=== PATIENT | male | born 1960 | race Caucasian/White ===

== ENCOUNTER 2017-01-19 19:00 | Emergency (ER) | payer SELFPAY ==
[~2017-01-19] VITALS: Ht 170.2 cm; Wt 75.0 kg
[2017-01-19 19:08] VITALS: BP 132/89; PULSE 105; RESP 18; TEMP 98.7; O2SAT 98
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
[2017-01-19 22:10] VITALS: BP 143/90; PULSE 73; RESP 15; O2SAT 95
[2017-01-19] MEDS ORDERED: HALOPERIDOL LACTATE 5 MG/ML AMP IM ONE (22:15)
[2017-01-19] MEDS ORDERED: diphenhydrAMINE HCL 50 MG/ML VIAL IM ONE (22:15)
[2017-01-19] MEDS ORDERED: LORazepam 2 MG/ML VIAL ONE (22:48)
[2017-01-19] MEDS ORDERED: LORazepam 2 MG/ML VIAL IM ONE (23:00)
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
[2017-01-20 07:00] VITALS: BP 122/78; PULSE 87; RESP 16; TEMP 98; O2SAT 98
[2017-01-20 10:46] VITALS: BP 132/74
== END 2017-01-20 11:10 | disposition home or self-care (01) ==
LOC: NEDAMB 19:00 → NEPD 01-20 11:10
DX: S09.90XA Unspecified injury of head, initial encounter (principal); S81.812A Laceration without foreign body, left lower leg, initial encounter; S80.212A Abrasion, left knee, initial encounter; S80.211A Abrasion, right knee, initial encounter; X58.XXXA Exposure to other specified factors, initial encounter; Y93.55 Activity, bike riding; F10.920 Alcohol use, unspecified with intoxication, uncomplicated; F17.290 Nicotine dependence, other tobacco product, uncomplicated
CPT/HCPCS: 70450; 72125; 73560; 73600; 96372; 99285; J1200; J1630; J2060

== ENCOUNTER 2017-10-16 14:44 | Inpatient (IN) | payer SELFPAY ==
[2017-10-16] VITALS (7 sets, daily range): BP systolic 100–121; BP diastolic 61–74; PULSE 76–86; RESP 18–23; TEMP 97.5; O2SAT 92–100
[~2017-10-16] VITALS: Ht 175.3 cm; Wt 56.5 kg
[2017-10-16] MEDS ORDERED: PROPOFOL 200 MG/20 ML AMP ONE (14:57)
[2017-10-16] MEDS ORDERED: DIPHTH/TETANUS/ACEL PERTUSSIS (BOOSTER) 0.5 ML VIAL/PFS IM ONE ×2 (15:05→15:06)
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
[2017-10-16] MEDS ORDERED: CHLORHEXIDINE GLUCONATE 2 % 1 PACK (2 CLOTHS) TOP PRN (15:30)
[2017-10-16] MEDS ORDERED: ONDANSETRON HCL 4 MG/2 ML VIAL IV PUSH PRN (15:30)
[2017-10-16] MEDS ORDERED: ENALAPRILAT 1.25 MG/ML VIAL IV PUSH PRN (15:30)
[2017-10-16] MEDS ORDERED: NURSING INFORMATION XX SCH (15:30)
[2017-10-16] MEDS ORDERED: MAGNESIUM HYDROXIDE SUSP 30 ML CUP PO PRN (15:30)
[2017-10-16] MEDS ORDERED: IOHEXOL 350 MG/ML 10 ML VIAL (for RAD DIAG) IVCONTRAST ONE (15:30)
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
[2017-10-16] MEDS: LACTATED RINGER'S 1000 ML INJ 1,000 ML IV SCH (18:20)
[2017-10-16] MEDS: HYDROmorphone HCL PF 0.5 MG/0.5 ML SYRINGE IV PUSH PRN ×2 (19:53→23:03)
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
[2017-10-16] MEDS: DOCUSATE SODIUM 100 MG CAP PO SCH (20:05)
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
[2017-10-16] MEDS: BACITRACIN TOP OINT 15 GM TUBE TOP SCH (20:38)
[2017-10-16 22:25] LABS: AUTOMATED NEUTROPHIL # 9.9 TH/MM3 (1.8-7.7); BASOPHIL % 0.4 % (0.0-2.0); EOSINOPHIL % 0.1 % (0.0-4.0); HEMATOCRIT 39.3 % (39.0-51.0); HEMOGLOBIN 13.3 GM/DL (13.0-17.0); LYMPH % 14.2 % (9.0-44.0); LYMPHOCYTE # 1.8 TH/MM3 (1.0-4.8); MEAN CELL VOLUME 91.6 FL (80.0-100.0); MEAN CORPUSCULAR HEMOGLOBIN 31.1 PG (27.0-34.0); MEAN PLATELET VOLUME 8.4 FL (7.0-11.0); MONO % 6.7 % (0.0-8.0); MONOCYTE # 0.8 TH/MM3 (0-0.9); NEUT % 78.6 % (16.0-70.0); PLATELET COUNT 278 TH/MM3 (150-450); RED BLOOD COUNT 4.29 MIL/MM3 (4.50-5.90); RED CELL DISTRIBUTION WIDTH 13.5 % (11.6-17.2); WHITE BLOOD COUNT 12.6 TH/MM3 (4.0-11.0)
[2017-10-16 22:27] LABS: PROTHROMBIN TIME - PATIENT 10.1 SEC (9.8-11.6)
[2017-10-17] VITALS (14 sets, daily range): BP systolic 100–155; BP diastolic 59–90; PULSE 54–94; RESP 12–20; TEMP 98–98.8; O2SAT 93–100
[2017-10-17] MEDS: LACTATED RINGER'S 1000 ML INJ 1,000 ML IV SCH ×3 (00:11→19:20)
[2017-10-17] MEDS: CHLORHEXIDINE GLUCONATE 2 % 1 PACK (2 CLOTHS) TOP SCH (04:00)
[2017-10-17 05:15] LABS: AUTOMATED NEUTROPHIL # 7.1 TH/MM3 (1.8-7.7); BASOPHIL # 0.1 TH/MM3 (0-0.2); BASOPHIL % 0.6 % (0.0-2.0); EOSINOPHIL # 0.1 TH/MM3 (0-0.4); EOSINOPHIL % 0.6 % (0.0-4.0); HEMATOCRIT 40.2 % (39.0-51.0); HEMOGLOBIN 13.6 GM/DL (13.0-17.0); LYMPH % 13.9 % (9.0-44.0); LYMPHOCYTE # 1.3 TH/MM3 (1.0-4.8); MEAN CELL VOLUME 91.8 FL (80.0-100.0); MEAN CORPUSCULAR HGB CONC 33.8 % (32.0-36.0); MEAN PLATELET VOLUME 8.2 FL (7.0-11.0); MONO % 8.2 % (0.0-8.0); MONOCYTE # 0.8 TH/MM3 (0-0.9); NEUT % 76.7 % (16.0-70.0); PLATELET COUNT 272 TH/MM3 (150-450); RED BLOOD COUNT 4.38 MIL/MM3 (4.50-5.90); RED CELL DISTRIBUTION WIDTH 13.7 % (11.6-17.2); WHITE BLOOD COUNT 9.3 TH/MM3 (4.0-11.0)
[2017-10-17 05:35] LABS: BICARBONATE 22.2 MEQ/L (21.0-32.0); CREATININE 0.65 MG/DL (0.60-1.30)
[2017-10-17] MEDS: FAMOTIDINE 20 MG TAB PO SCH ×2 (08:21→21:00)
[2017-10-17] MEDS: BACITRACIN TOP OINT 15 GM TUBE TOP SCH ×2 (08:21→20:54)
[2017-10-17] MEDS: DOCUSATE SODIUM 100 MG CAP PO SCH ×2 (08:21→21:00)
[2017-10-17] MEDS ORDERED: MORPHINE SULFATE 8 MG/ML INJ ONE (09:31)
[2017-10-17] MEDS ORDERED: MIDAZOLAM HCL 5 MG/ML VIAL (1 ML) ONE (09:31)
[2017-10-17] MEDS ORDERED: LIDOCAINE 1%/EPINEPHrine 1:100,000 SOLN 30 ML VIAL ONE (09:40)
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
[2017-10-17] MEDS ORDERED: MIDAZOLAM HCL 5 MG/ML VIAL (1 ML) IV ONE (10:00)
[2017-10-17] MEDS ORDERED: MORPHINE SULFATE 4 MG/ML INJ IV PUSH ONE ×2 (10:00→11:00)
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
--- NOTE | 2017-10-17 10:37 | PD.OP ---
LAUREN Huff [id number] Operative Report Date of Surgery: October 17, 2017 Preoperative Diagnosis: Cervical C2 type II odontoid fracture, C3-4 listhesis with the ligamentous disruption and instability; left C5 pedicle/facet fracture Postoperative Diagnosis: Same Procedure: Closed reduction with manipulation of the cervical spine fractures; HALO placement Anesthesia: Local with conscious sedation Surgeon: Satnam Aguilar MD Director Of Curriculum(s): None Operation and Findings: Informed consent was obtained from the patient. Procedure undertaken at the bedside in the surgical intensive care unit with oxygen saturation and hemodynamic monitoring. Neck was maintained in a [place] J collar during the placement of the halo. After administration of intravenous Versed and morphine bifrontal and occipital regions were then shaved and prepped with Betadine solution and infiltrated with 1% lidocaine with epinephrine solution. The halo ring was in place with 2 frontal and occipital pins tightened to 8 pounds of torque pressure. With gentle traction the cervical spinal alignment was restored and lateral cervical spine x-rays obtained which confirmed restored cervical spinal alignment. The halo vest was then also placed in the ring connectors of the vest with rods and locked in place at 30 pounds of pressure at each connection maintaining a neutral neck position. Patient tolerated the procedure well without any complications or blood loss. Satnam Aguilar MD October 17, 2017 10:37
[2017-10-17] MEDS ORDERED: MIDAZOLAM HCL 5 MG/ML VIAL (1 ML) IV PUSH ONE (11:00)
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
--- NOTE | 2017-10-17 12:04 | EKG ---
Date Performed: 10/17/2017 Time Performed: 10:02:39 PTAGE: 56 years EKG: Sinus rhythm WITH MARKED SINUS ARRHYTHMIA WITH SHORT MO INTERVAL BORDERLINE ECG NO PREVIOUS TRACING DOCTOR: Marcio Soto Interpretating Date/Time 10/17/2017 12:02:46
--- NOTE | 2017-10-17 12:32 | RADRPT ---
EXAM DATE/TIME: 10/17/2017 10:53 [facility] COMPARISON: CT CERVICAL SPINE W/O CONTRAST, October 16, 2017, 15:10. INDICATIONS : Trauma. MEDICAL HISTORY : None. SURGICAL HISTORY : None. ENCOUNTER: Initial ACUITY: 1 day PAIN SCORE: Non-responsive. LOCATION: Cervical spine. FINDINGS: Single lateral view of the cervical spine with halo device in place demonstrates anterior spinal plat e and screws extending from C5-C7. There is a bone cage replacing the C6 vertebral body. Yesterday's CT examination documented a fracture through the base of the odontoid process. The fracture is not vi sualized on this examination. There is no anterolisthesis or retrolisthesis. Prevertebral soft tissue swelling is present. The previously documented retrolisthesis of C3 on C4 has resolved. The small fr acture fragment from the anterior inferior end plate of C3 remains displaced anteriorly by 4 mm. CONCLUSION: 1. Resolution of the abnormal retrolisthesis of C3 on C4. 2. The fracture through the odontoid process is not visualized on this examination. 3. Hardware at C4, C5, and C6 is stable. 4. Prevertebral soft tissue swelling is present. Refugio Olivares MD on October 17, 2017 at 12:27 Board Certified Radiologist. This report was verified electronically.
[2017-10-17] MEDS: VANCOMYCIN INJ 1,000 MG in SODIUM CHLOR 0.9% 250 ML INJ 250 ML IV SCH (14:12)
[2017-10-17] MEDS: SODIUM CHLORIDE 0.9% FLUSH 10 ML FLUSH IV FLUSH PRN (20:55)
[2017-10-17] MEDS: HYDROmorphone HCL PF 0.5 MG/0.5 ML SYRINGE IV PUSH PRN (20:55)
[2017-10-17] MEDS ORDERED: CHLORHEXIDINE GLUCONATE 2 % 1 PACK (2 CLOTHS) TOPICAL PRN (21:15)
[2017-10-17] MEDS ORDERED: LACTATED RINGER'S 1000 ML IV PRN (21:15)
[2017-10-17] MEDS ORDERED: METOPROLOL TARTRATE 25 MG TAB PO PRN (21:15)
[2017-10-17] MEDS ORDERED: POVIDONE IODINE 5% (ANTISEPSIS KIT) 4 APPLICATIONS EACH NARE PRN (21:15)
[2017-10-17] MEDS ORDERED: SODIUM CHLORID 0.9% 500 ML IV PRN (21:15)
[2017-10-18] VITALS (14 sets, daily range): BP systolic 117–169; BP diastolic 60–96; PULSE 54–124; RESP 12–21; TEMP 98.2–98.6; O2SAT 98–100
[2017-10-18] MEDS: VANCOMYCIN INJ 1,000 MG in SODIUM CHLOR 0.9% 250 ML INJ 250 ML IV SCH ×2 (01:53→14:00)
[2017-10-18] MEDS: CHLORHEXIDINE GLUCONATE 2 % 1 PACK (2 CLOTHS) TOP SCH (04:00)
[2017-10-18 04:26] LABS: AUTOMATED NEUTROPHIL # 6.3 TH/MM3 (1.8-7.7); BASOPHIL # 0.1 TH/MM3 (0-0.2); BASOPHIL % 0.7 % (0.0-2.0); EOSINOPHIL % 0.5 % (0.0-4.0); HEMATOCRIT 37.2 % (39.0-51.0); HEMOGLOBIN 12.9 GM/DL (13.0-17.0); LYMPH % 11.7 % (9.0-44.0); LYMPHOCYTE # 0.9 TH/MM3 (1.0-4.8); MEAN CELL VOLUME 91.5 FL (80.0-100.0); MEAN CORPUSCULAR HEMOGLOBIN 31.7 PG (27.0-34.0); MEAN CORPUSCULAR HGB CONC 34.7 % (32.0-36.0); MEAN PLATELET VOLUME 8.6 FL (7.0-11.0); MONO % 8.7 % (0.0-8.0); MONOCYTE # 0.7 TH/MM3 (0-0.9); NEUT % 78.4 % (16.0-70.0); PLATELET COUNT 220 TH/MM3 (150-450); RED BLOOD COUNT 4.06 MIL/MM3 (4.50-5.90); RED CELL DISTRIBUTION WIDTH 13.2 % (11.6-17.2); WHITE BLOOD COUNT 8.1 TH/MM3 (4.0-11.0)
[2017-10-18] MEDS: LACTATED RINGER'S 1000 ML INJ 1,000 ML IV SCH ×2 (04:39→17:44)
[2017-10-18] MEDS: HYDROmorphone HCL PF 0.5 MG/0.5 ML SYRINGE IV PUSH PRN ×2 (04:40→14:12)
[2017-10-18] MEDS: SODIUM CHLORIDE 0.9% FLUSH 10 ML FLUSH IV FLUSH PRN ×2 (04:40→21:04)
[2017-10-18 04:53] LABS: ALBUMIN 2.6 GM/DL (3.4-5.0); ALT (GPT) 36 U/L (12-78); AST (GOT) 37 U/L (15-37); BICARBONATE 27.4 MEQ/L (21.0-32.0); BLOOD UREA NITROGEN 7 MG/DL (7-18); CALCIUM 7.6 MG/DL (8.5-10.1); CHLORIDE 100 MEQ/L (98-107); CREATININE 0.54 MG/DL (0.60-1.30); GLOMERULAR FILTRATION RATE 158 ML/MIN (>89); GLUCOSE,RANDOM 87 MG/DL (74-106); SODIUM (NA) 137 MEQ/L (136-145)
[2017-10-18 04:55] LABS: ALKALINE PHOSPHATASE 47 U/L (45-117); TOTAL PROTEIN 6.1 GM/DL (6.4-8.2)
[2017-10-18] MEDS ORDERED: ACETAMINOPHEN 1000 MG/100 ML 0 ML IV ONE (07:22)
[2017-10-18] MEDS ORDERED: PROPOFOL 500 MG/50 ML INJ 100 ML ONE (07:22)
[2017-10-18] MEDS: FAMOTIDINE 20 MG TAB PO SCH ×2 (07:23→21:05)
[2017-10-18] MEDS: DOCUSATE SODIUM 100 MG CAP PO SCH ×2 (07:23→21:05)
[2017-10-18] MEDS: BACITRACIN TOP OINT 15 GM TUBE TOP SCH ×2 (07:26→21:04)
[2017-10-18] MEDS ORDERED: THROMBIN (TOPICAL) 5,000 UNIT VIAL ONE ×2 (07:30→07:46)
[2017-10-18] MEDS ORDERED: BUPIVACAINE/EPINEPHRINE 0.5% PF 30 ML VIAL ONE (07:30)
[2017-10-18] MEDS ORDERED: VANCOMYCIN HCL 1000 MG VIAL ONE ×2 (07:30→07:46)
[2017-10-18] MEDS ORDERED: GELFOAM SIZE 100 ONE ×2 (07:30→07:46)
[2017-10-18] MEDS ORDERED: KETAMINE HCL 500 MG/10 ML VIAL ONE (07:44)
[2017-10-18] MEDS ORDERED: PROPOFOL 500 MG/50 ML INJ 50 ML ONE (07:44)
[2017-10-18] MEDS ORDERED: ACETAMINOPHEN 1000 MG/100 ML 100 ML IV ONE (07:45)
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
[2017-10-18] MEDS ORDERED: ARTIFICIAL TEARS OPTH OINT 3.5 APPLIC/3.5 GM TUBO ONE (08:00)
[2017-10-18] MEDS ORDERED: LACTATED RINGER'S 1000 ML INJ 2,000 ML IV ONE (12:00)
[2017-10-18] MEDS ORDERED: PROPOFOL 200 MG/20 ML AMP IV ONE (12:00)
[2017-10-18] MEDS ORDERED: ROCURONIUM INJ 50 MG/5 ML SYRINGE IV PUSH ONE (12:00)
[2017-10-18] MEDS ORDERED: GLYCOPYRROLATE 1 MG/5 ML SYRINGE IV PUSH ONE (12:00)
[2017-10-18] MEDS ORDERED: ePHEDrine/NS 25 MG/5 ML SYRINGE IV ONE (12:00)
[2017-10-18] MEDS ORDERED: LIDOCAINE HCL 1% PF 5 ML SYRINGE OTHER ONE (12:00)
[2017-10-18] MEDS ORDERED: ONDANSETRON HCL 4 MG/2 ML VIAL IV PUSH ONE (12:00)
[2017-10-18] MEDS ORDERED: PHENYLEPH/NS 1000 MCG/10 ML SYR IV ONE (12:00)
--- NOTE | 2017-10-18 13:18 | PD.OP ---
LAUREN Huff [id number] Operative Report Date of Surgery: October 18, 2017 Preoperative Diagnosis: Cervical C2 type II odontoid fracture; C3-4 subluxation with widening of the facet and anterior and posterior ligamentous disruption with instability; left C5 pedicle/facet fracture Postoperative Diagnosis: Same Procedure: Posterior cervical C1, C2, C3, C4, C5, C6 and C7 autograft/allograft fusion; C1- 2 interspinous Devante cable stabilization with C3-7 lateral mass/facet fixation ; C3-4 decompressive laminotomy; left iliac crest autograft harvest; microsurgical technique Anesthesia: General endotracheal by Cinthya garvin Surgeon: Satnam Aguilar MD Conveyor Belt Operator(s): Celia Loya Operation and Findings: Following administration of general endotracheal anesthesia with the neck maintained in neutral position in a halo, patient had a Michael catheter placed with sequential compression devices in place. A gram of vancomycin was administered intravenously. He was then turned on a prone position on a Jose Miguel table and the halo head ring was secured to the [place] headrest and the posterior portion of the vas then removed after all pressure points adequately padded. Posterior cervical region was then shaved and prepped with Betadine solution and ChloraPrep. Sterile draping undertaken along with Ioban and a midline incision extending from the C1 to the C7 was then made after infiltrating the skin was 0.5% Marcaine with epinephrine solution. Intraoperative fluoroscopy used for level confirmation. Retractors were used for exposure after the fascia incised and the muscular attachments to the spinous process and lamina along with the facets detached from C3 to C7 levels bilaterally as well as exposure of the C1 posterior arch and C2 spinous process and lamina. Further dissection was undertaken using microtechnique with microscope magnification. I decorticated the inferior portion of the C1 posterior arch and the superior portion of the C2 lamina and spinous process and a Devante cable was then passed under the C1 lamina. An incision was then made overlying the left iliac crest after infiltrating the skin with 0.5% Marcaine with epinephrine solution and extending down through the fascia and the muscular attachments to crests were detached. Using an osteotome a tricortical autograft was harvested along with the cancellus bone using gouges. Gelfoam and thrombin was used for hemostasis in the then copiously irrigated. The fascia was then approximated using 2-0 Vicryl interrupted stitches and then the skin overlying the crest was approximately using 3-0 Vicryl subcuticular stitches and filemon. The tricortical autograft was then contoured to be position in between the C1 and C2 space and the Devante cable was then secured at the C1-C2 level under the spinous process of C2 using the Sonntag technique. The C1-C2 construct appeared to be very secure at this point. There was gross C3-4 instability noted with the widening of the facet and disruption of the facet capsule and interspinous ligaments The facets on both sides decorticated C2-C7 with a curette. Subsequently lateral mass fixation undertaken with the [employer] screws with entry point of the midportion of the facet on the right side from C3 to C7 levels in the left sides involving the C3-C4 and C6 levels. The screw trajectory was lateral and superiorly guided with fluoroscopy also. Screws were then connected with a chrissie and locked in place with caps. The construct appeared to be secure this point in AP and lateral fossae confirmed good placement and alignment. The inferior portion of the C3 and superior portion of C4 lamina was also resected with a drill bit and Kerrisons to decompress the spinal canal. The decorticated facets were then packed from C3 to C7 levels with autograft morselized bone along with demineralized bone matrix for posterolateral fusion. The area was then copiously irrigated with antibody solution laminectomy edges and hemostasis achieved with bone wax along with Gelfoam and thrombin. Retractors removed and the muscle and fascia using 2-0 Vicryl interrupted sutures and 3-0 Vicryl subcuticular stitch also placed in an interrupted fashion and final skin closure was with filemon. A sterile dressing was applied and the neck immobilized in a [place] J collar. He was then turned in supine position and taken back to the intensive care unit. There were no intraoperative complications and all sponge and needle count was correct at the end the procedure. Estimated blood loss about 100 cc. Patient did undergo intraoperative neurologic monitoring which remained stable throughout surgery. Satnam Aguilar MD October 18, 2017 13:18
[2017-10-18] MEDS: PROPOFOL 1000 MG/100 ML INJ 100 ML IV PRN ×3 (13:30→22:14)
--- NOTE | 2017-10-18 14:02 | RADRPT ---
EXAM DATE/TIME: 10/18/2017 09:28 [facility] COMPARISON: No previous studies available for comparison. INDICATIONS : Posterior cervical fusion, laminectomy, hardware placement. MEDICAL HISTORY : Anterior cervical corpectomy, fusion. SURGICAL HISTORY : Anterior cervical corpectomy, fusion. ENCOUNTER: Subsequent ACUITY: 2 days PAIN SCORE: Non-responsive. LOCATION: Posterior cervical fusion. FINDINGS: Patient is now fused anteriorly and posteriorly. Posterior fusion is from C2-C7. Anterior fusion wi th cages from C4-C6. CONCLUSION: Fusions as above.. Jett Shah MD FACR on October 18, 2017 at 13:59 Board Certified Radiologist. This report was verified electronically.
[2017-10-18] MEDS ORDERED: POTASSIUM PHOSPHATE INJ 30 MMOL in SODIUM CHLOR 0.9% 250 ML INJ 250 ML IV PRN (14:15)
[2017-10-18] MEDS ORDERED: POTASSIUM CHLOR 20 MEQ PREMIX 100 ML IV PRN (14:15)
[2017-10-18] MEDS ORDERED: POTASSIUM PHOSPHATE MONOBASIC 500 MG TAB PO PRN (14:15)
[2017-10-18] MEDS ORDERED: POTASSIUM CHLORIDE 25 MEQ EFFERVESCENT TAB PO PRN (14:15)
[2017-10-18] MEDS ORDERED: SODIUM PHOSPHATE INJ 30 MMOL in SODIUM CHLOR 0.9% 250 ML INJ 240 ML IV PRN (14:15)
[2017-10-18] MEDS ORDERED: MAGNESIUM OXIDE 400 MG TAB PO PRN (14:15)
[2017-10-18] MEDS ORDERED: MAGNESIUM SULFATE INJ 2 GM in SODIUM CHLORIDE 0.9% INJ 96 ML IV PRN (14:15)
[2017-10-18] MEDS ORDERED: RESP: ALBUTEROL 2.5 MG/IPRATROPIUM 0.5 MG NEB (PRN) NEB (14:15)
[2017-10-18] MEDS ORDERED: MAGNESIUM SULFATE INJ 4 GM in SODIUM CHLORIDE 0.9% INJ 92 ML IV PRN (14:15)
[2017-10-18] MEDS ORDERED: POTASSIUM CHLOR 40 MEQ PREMIX 100 ML IV PRN ×2 (14:15)
[2017-10-18] MEDS ORDERED: POTASSIUM PHOSPHATE MONOBASIC 500 MG TAB PO/TUBE PRN (14:15)
[2017-10-18] MEDS ORDERED: MIDAZOLAM HCL 2 MG/2 ML VIAL ONE (14:17)
[2017-10-18 14:26] LABS: HEMATOCRIT 30.1 % (39.0-51.0); HEMOGLOBIN 10.6 GM/DL (13.0-17.0); MEAN CELL VOLUME 91.5 FL (80.0-100.0); MEAN CORPUSCULAR HEMOGLOBIN 32.2 PG (27.0-34.0); MEAN CORPUSCULAR HGB CONC 35.2 % (32.0-36.0); MEAN PLATELET VOLUME 8.3 FL (7.0-11.0); PLATELET COUNT 184 TH/MM3 (150-450); RED BLOOD COUNT 3.29 MIL/MM3 (4.50-5.90); WHITE BLOOD COUNT 8.6 TH/MM3 (4.0-11.0)
[2017-10-18 15:18] LABS: BICARBONATE 27.8 MEQ/L (21.0-32.0); CREATININE 0.68 MG/DL (0.60-1.30); MAGNESIUM 1.7 MG/DL (1.5-2.5)
[2017-10-18 15:33] LABS: CALCIUM-PROTEIN CORRECTED 8.2 MG/DL (8.5-10.1); TOTAL PROTEIN 4.9 GM/DL (6.4-8.2)
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
[2017-10-18] MEDS: RESP: ALBUTEROL 2.5 MG/IPRATROPIUM 0.5 MG NEB (SCH) NEB ×2 (16:35→20:40)
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
[2017-10-18] MEDS: CHLORHEXIDINE 0.12% (ORAL KIT) 15 ML CUP MT SCH (21:07)
[2017-10-19] VITALS (18 sets, daily range): BP systolic 96–120; BP diastolic 47–56; PULSE 74–102; RESP 12–15; TEMP 97.9–99.9; O2SAT 94–100
[2017-10-19] MEDS: VANCOMYCIN INJ 1,000 MG in SODIUM CHLOR 0.9% 250 ML INJ 250 ML IV SCH (02:08)
[2017-10-19] MEDS: SODIUM CHLORIDE 0.9% FLUSH 10 ML FLUSH IV FLUSH PRN ×2 (02:08→20:16)
[2017-10-19] MEDS: CHLORHEXIDINE GLUCONATE 2 % 1 PACK (2 CLOTHS) TOP SCH (04:00)
[2017-10-19] MEDS: LACTATED RINGER'S 1000 ML INJ 1,000 ML IV SCH ×2 (04:00→13:23)
[2017-10-19] MEDS: RESP: ALBUTEROL 2.5 MG/IPRATROPIUM 0.5 MG NEB (SCH) NEB ×4 (04:22→20:56)
[2017-10-19 05:33] LABS: AUTOMATED NEUTROPHIL # 6.1 TH/MM3 (1.8-7.7); BASOPHIL # 0.1 TH/MM3 (0-0.2); BASOPHIL % 0.7 % (0.0-2.0); EOSINOPHIL % 0.5 % (0.0-4.0); HEMATOCRIT 28.2 % (39.0-51.0); HEMOGLOBIN 9.8 GM/DL (13.0-17.0); LYMPH % 11.3 % (9.0-44.0); LYMPHOCYTE # 0.8 TH/MM3 (1.0-4.8); MEAN CELL VOLUME 91.5 FL (80.0-100.0); MEAN CORPUSCULAR HEMOGLOBIN 31.8 PG (27.0-34.0); MEAN CORPUSCULAR HGB CONC 34.8 % (32.0-36.0); MONOCYTE # 0.3 TH/MM3 (0-0.9); NEUT % 83.5 % (16.0-70.0); PLATELET COUNT 170 TH/MM3 (150-450); RED BLOOD COUNT 3.08 MIL/MM3 (4.50-5.90); RED CELL DISTRIBUTION WIDTH 13.1 % (11.6-17.2); WHITE BLOOD COUNT 7.3 TH/MM3 (4.0-11.0)
[2017-10-19 05:52] LABS: ALBUMIN 2.2 GM/DL (3.4-5.0); BICARBONATE 29.6 MEQ/L (21.0-32.0); CALCIUM 7.1 MG/DL (8.5-10.1); CALCIUM-PROTEIN CORRECTED 8.2 MG/DL (8.5-10.1); CREATININE 0.43 MG/DL (0.60-1.30); TOTAL BILIRUBIN ADULT 0.8 MG/DL (0.2-1.0)
[2017-10-19] MEDS: PROPOFOL 1000 MG/100 ML INJ 100 ML IV PRN ×2 (06:38→18:30)
[2017-10-19] MEDS: POTASSIUM CHLOR 20 MEQ PREMIX 100 ML IV PRN (06:40)
[2017-10-19] MEDS: CHLORHEXIDINE 0.12% (ORAL KIT) 15 ML CUP MT SCH ×2 (08:00→20:16)
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
[2017-10-19] MEDS: DOCUSATE SODIUM 100 MG CAP PO SCH ×2 (09:00→20:16)
[2017-10-19] MEDS: FAMOTIDINE 20 MG TAB PO SCH ×2 (09:10→20:16)
[2017-10-19] MEDS: BACITRACIN TOP OINT 15 GM TUBE TOP SCH ×2 (09:10→20:18)
[2017-10-19] MEDS ORDERED: ENOXAPARIN SODIUM 30 MG/0.3 ML SYRINGE SQ SCH (10:00)
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
[2017-10-19] MEDS ORDERED: ePHEDrine/NS 25 MG/5 ML SYRINGE IV ONE (12:00)
[2017-10-19] MEDS ORDERED: PHENYLEPH/NS 1000 MCG/10 ML SYR IV ONE (12:00)
[2017-10-19] MEDS ORDERED: ROCURONIUM INJ 50 MG/5 ML SYRINGE IV PUSH ONE (12:00)
[2017-10-19] MEDS ORDERED: PHENYLEPHRINE HCL 10 MG/ML VIAL IV ONE (12:00)
[2017-10-19] MEDS ORDERED: LIDOCAINE HCL 1% PF 5 ML SYRINGE OTHER ONE (12:00)
[2017-10-19] MEDS ORDERED: PROPOFOL 200 MG/20 ML AMP IV ONE (12:00)
[2017-10-19] MEDS ORDERED: GENTAMICIN SULFATE 80 MG/2 ML VIAL ONE (13:10)
[2017-10-19] MEDS ORDERED: CLINDAMYCIN PHOS 900 MG/6 ML VIAL ONE (13:40)
[2017-10-19] MEDS ORDERED: Post-op Orders (for Pharmacy) XX ONE (14:45)
--- NOTE | 2017-10-19 14:46 | PD.OP ---
cc: Fox Mir MD Operative Report Date of Surgery: October 19, 2017 Preoperative Diagnosis: Displaced left distal tibial shaft fracture Postoperative Diagnosis: Procedure: Reduction and intramedullary chrissie fixation left tibia Anesthesia: General Surgeon: Fox Mir Protector Plate Attacher(s): Brando Barreto PA-C The surgical procedure was assisted by my physician assistant site manager. My P.A. presence was necessary throughout this case for the manipulation and positioning of the surgical extremity. My P.A. was assisting me throughout the duration of this procedure. The skill set of a physician assistant site manager was medically necessary to complete this procedure. During the surgical case the rad technologist was working at the back table and the physician assistant site manager was directly assisting me. Operation and Findings: Implants: ITS 10 mm x [345]mm tibial nail Plan of activity: Nonweightbearing Patient was seen and examined preoperatively. An informed consent was obtained from patient after detailed discussion of risk and benefits. Risks of surgery include bleeding, infection, painful hardware, nonunion, malunion, leg length discrepancy, need for hardware removal, and medical complications associated with anesthesia including blood clots, stroke, heart attack, and were discussed. Operative site was marked. Patient was brought to the operating room placed on or table. Patient received IV antibiotics and was given IV sedation GETA. Operative leg was prepped with alcohol Hibiclens and draped in usual sterile fashion. Timeout procedure was performed Procedure began with reduction of fracture. 2 small incisions were made around the fracture site. A percutaneous clamp was placed. Traction was applied. Fracture was reduced. There was comminution of the fracture. The fracture reduced and excellent alignment was achieved. Fracture clamp was used to aid in reduction. Next a 3 cm incision was made proximal to the patella. Quadriceps tendon was split in line with fibers. Cannulas were placed in the patellofemoral joint to protect the articular surface at all times. A guidepin was placed into the tibia and advanced in the tibial canal. Fluoroscopy was used to confirm appropriate guidepin placement. An opening reamer was used to open the tibial canal. A ball-tipped guidewire was advanced down the tibial canal. Guidepin was passed across the fracture site into the center of the distal tibia. Fluoroscopy confirmed guidepin placement. The nail length was now measured. The fracture was now held in a reduced position and the canal was reamed. The canal was reamed up to appropriate size. A tibia nail was now selected. Next the nail was fully seated. Using perfect [place] technique 3 distal interlocking screws were placed. Using the insertion handle as a guide 1 proximal interlocking screw was placed. Fluoroscopy confirmed excellent of fracture with well-placed hardware. Incisions and the knee joint were thoroughly irrigated with sterile saline. Fascia was closed with #1 Vicryl, subcutaneous tissues closed with 3-0 Vicryl and skin was closed with filemon. Sterile dressings were applied. Patient was awakened and transferred to recovery in stable condition. Fox Mir MD October 19, 2017 14:46
[2017-10-19] MEDS ORDERED: PROPOFOL 500 MG/50 ML INJ 50 ML ONE (14:55)
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
[2017-10-19] MEDS: PHENYLEPHRINE 40 MG in D5W 500 ML IV PRN ×2 (15:15→20:17)
[2017-10-19] MEDS ORDERED: MIDAZOLAM HCL 2 MG/2 ML VIAL ONE (15:25)
--- NOTE | 2017-10-19 15:52 | RADRPT ---
EXAM DATE/TIME: 10/19/2017 14:30 [facility] COMPARISON: No previous studies available for comparison. INDICATIONS : ORIF left tibia fracture. MEDICAL HISTORY : Unobtainable. SURGICAL HISTORY : Unobtainable. ENCOUNTER: Subsequent ACUITY: 3 days PAIN SCORE: Non-responsive. LOCATION: Left tibia. FINDINGS: Two view examination of the left tibia demonstrates chrissie fixation across a distal tibial shaft fractur e with near-anatomic alignment. No complications identified. CONCLUSION: 1. Fixation of distal tibial fracture. Dominic Bernal MD on October 19, 2017 at 15:49 Board Certified Radiologist. This report was verified electronically.
[2017-10-19] MEDS ORDERED: TERBUTALINE INJ 1 MG/ML AMP SQ PRN (16:00)
[2017-10-20] VITALS (21 sets, daily range): BP systolic 102–124; BP diastolic 18–68; PULSE 70–100; RESP 12–16; TEMP 98.8–99.6; O2SAT 97–100
[2017-10-20] MEDS: LACTATED RINGER'S 1000 ML INJ 1,000 ML IV SCH ×2 (00:23→09:03)
[2017-10-20] MEDS: SODIUM CHLORIDE 0.9% FLUSH 10 ML FLUSH IV FLUSH PRN (00:24)
[2017-10-20] MEDS: RESP: ALBUTEROL 2.5 MG/IPRATROPIUM 0.5 MG NEB (SCH) NEB ×4 (03:53→21:29)
[2017-10-20] MEDS: CHLORHEXIDINE GLUCONATE 2 % 1 PACK (2 CLOTHS) TOP SCH (04:00)
[2017-10-20] MEDS: PROPOFOL 1000 MG/100 ML INJ 100 ML IV PRN ×2 (04:17→17:39)
[2017-10-20 05:08] LABS: AUTOMATED NEUTROPHIL # 8.4 TH/MM3 (1.8-7.7); BASOPHIL # 0.1 TH/MM3 (0-0.2); BASOPHIL % 0.8 % (0.0-2.0); EOSINOPHIL # 0.1 TH/MM3 (0-0.4); HEMATOCRIT 24.5 % (39.0-51.0); HEMOGLOBIN 8.5 GM/DL (13.0-17.0); LYMPH % 10.2 % (9.0-44.0); MEAN CORPUSCULAR HEMOGLOBIN 31.8 PG (27.0-34.0); MEAN CORPUSCULAR HGB CONC 34.5 % (32.0-36.0); MONO % 4.5 % (0.0-8.0); MONOCYTE # 0.5 TH/MM3 (0-0.9); NEUT % 83.5 % (16.0-70.0); PLATELET COUNT 165 TH/MM3 (150-450); RED BLOOD COUNT 2.67 MIL/MM3 (4.50-5.90); WHITE BLOOD COUNT 10.1 TH/MM3 (4.0-11.0)
[2017-10-20 05:31] LABS: ALBUMIN 1.9 GM/DL (3.4-5.0); AST (GOT) 22 U/L (15-37); BICARBONATE 28.1 MEQ/L (21.0-32.0); BLOOD UREA NITROGEN 4 MG/DL (7-18); CALCIUM 7.5 MG/DL (8.5-10.1); CHLORIDE 103 MEQ/L (98-107); CREATININE 0.56 MG/DL (0.60-1.30); GLOMERULAR FILTRATION RATE 151 ML/MIN (>89); GLUCOSE,RANDOM 124 MG/DL (74-106); SODIUM (NA) 139 MEQ/L (136-145)
[2017-10-20 05:32] LABS: ALT (GPT) 23 U/L (12-78)
[2017-10-20 05:35] LABS: ALKALINE PHOSPHATASE 37 U/L (45-117); TOTAL PROTEIN 4.9 GM/DL (6.4-8.2)
--- NOTE | 2017-10-20 07:05 | PD.ORT.PN ---
Subjective Subjective Remarks POD 1 s/p IMN left distal tibia s/p left shoulder dislocation intubated/sedated Objective Vitals Vital Signs Date Time Temp Pulse Resp B/P (MAP) Pulse Ox O2 Delivery O2 Flow Rate FiO2 10/20/17 06:00 84 10/20/17 04:00 99.4 70 12 124/60 (81) 100 10/20/17 04:00 70 10/20/17 04:00 50 10/20/17 03:54 100 30 10/20/17 02:00 76 10/20/17 00:07 97 30 10/20/17 00:00 90 10/20/17 00:00 50 10/20/17 00:00 99.6 90 16 110/54 (72) 97 10/19/17 22:00 78 10/19/17 20:56 94 30 10/19/17 20:17 87 116/59 10/19/17 20:00 99.9 78 12 112/56 (74) 100 10/19/17 20:00 78 10/19/17 20:00 100 Mechanical Ventilator 50 10/19/17 20:00 50 10/19/17 18:00 78 10/19/17 16:04 98 30 10/19/17 16:00 98.6 87 12 99/47 (64) 100 10/19/17 16:00 50 10/19/17 16:00 87 10/19/17 15:15 86 97/54 10/19/17 13:45 100 100 10/19/17 12:00 92 10/19/17 12:00 50 10/19/17 12:00 98.0 92 15 106/56 (73) 96 10/19/17 11:56 99 30 10/19/17 10:00 102 10/19/17 08:38 100 40 10/19/17 08:00 100 10/19/17 08:00 97.9 100 15 96/54 (68) 100 Automatic Cuff 10/19/17 08:00 50 I/O 10/19/17 10/19/17 10/19/17 10/20/17 10/20/17 10/20/17 07:00 15:00 23:00 07:00 15:00 23:00 Intake Total 370 ml 1600 ml 100 ml 1240 ml Output Total 1300 ml 775 ml 400 ml 800 ml Balance -930 ml 825 ml -300 ml 440 ml IV Total 250 ml 1200 ml 100 ml 1000 ml Other 120 ml 400 ml 240 ml Output Urine Total 1300 ml 675 ml 400 ml 800 ml Estimated Blood Loss 100 ml # Bowel Movements 0 0 0 Result Diagram: 10/20/17 0448 10/20/17 0448 Imaging Last 24 hours Impressions Cervical Spine X-Ray 10/17/17 1035 Signed Impressions: Service Date/Time: Tuesday, October 17, 2017 10:53 - CONCLUSION: 1. Resolution of the abnormal retrolisthesis of C3 on C4. 2. The fracture through the odontoid process is not visualized on this examination. 3. Hardware at C4, C5, and C6 is stable. 4. Prevertebral soft tissue swelling is present. Refugio Olivares MD Objective Remarks LLE: +short leg splint intact and in good repair. good motion of toes with full sensation LUE: minimal swelling. nvi Assessment & Plan Assessment and Plan 1) Left distal Tibial Shaft Fx s/p IMN - POD 1 -maintain splint. -NWB -elevate -Ortho surgeries complete 2) Left Shoulder Dislocation s/p closed reduction in ER -NWB -sling Gilberto Hunt/Passenger Car Cleaning Supervisor JAMISON October 20, 2017 07:05
[2017-10-20] MEDS: CHLORHEXIDINE 0.12% (ORAL KIT) 15 ML CUP MT SCH ×2 (08:00→20:27)
[2017-10-20] MEDS: BACITRACIN TOP OINT 15 GM TUBE TOP SCH ×2 (09:00→21:14)
[2017-10-20] MEDS: FAMOTIDINE 20 MG TAB PO SCH ×2 (09:02→21:12)
[2017-10-20] MEDS: DOCUSATE SODIUM 100 MG CAP PO SCH ×2 (09:02→21:12)
[2017-10-20] MEDS: ENOXAPARIN SODIUM 30 MG/0.3 ML SYRINGE SQ SCH ×2 (09:03→21:14)
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
[2017-10-20] MEDS ORDERED: FUROSEMIDE 40 MG/4 ML VIAL IV PUSH ONE (10:00)
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
[2017-10-21] VITALS (19 sets, daily range): BP systolic 104–130; BP diastolic 18–75; PULSE 81–104; RESP 12–24; TEMP 98.4–100.2; O2SAT 100
[2017-10-21] MEDS: RESP: ALBUTEROL 2.5 MG/IPRATROPIUM 0.5 MG NEB (SCH) NEB ×4 (03:03→21:12)
[2017-10-21] MEDS: CHLORHEXIDINE GLUCONATE 2 % 1 PACK (2 CLOTHS) TOP SCH (04:00)
[2017-10-21 05:14] LABS: AUTOMATED NEUTROPHIL # 6.2 TH/MM3 (1.8-7.7); BASOPHIL % 0.6 % (0.0-2.0); EOSINOPHIL # 0.1 TH/MM3 (0-0.4); EOSINOPHIL % 1.6 % (0.0-4.0); HEMATOCRIT 23.7 % (39.0-51.0); HEMOGLOBIN 8.1 GM/DL (13.0-17.0); LYMPH % 9.6 % (9.0-44.0); LYMPHOCYTE # 0.7 TH/MM3 (1.0-4.8); MEAN CELL VOLUME 92.3 FL (80.0-100.0); MEAN CORPUSCULAR HEMOGLOBIN 31.5 PG (27.0-34.0); MEAN CORPUSCULAR HGB CONC 34.2 % (32.0-36.0); MEAN PLATELET VOLUME 8.9 FL (7.0-11.0); MONO % 6.8 % (0.0-8.0); MONOCYTE # 0.5 TH/MM3 (0-0.9); NEUT % 81.4 % (16.0-70.0); PLATELET COUNT 169 TH/MM3 (150-450); RED BLOOD COUNT 2.57 MIL/MM3 (4.50-5.90); RED CELL DISTRIBUTION WIDTH 12.9 % (11.6-17.2); WHITE BLOOD COUNT 7.7 TH/MM3 (4.0-11.0)
--- NOTE | 2017-10-21 05:17 | RADRPT ---
EXAM DATE/TIME: 10/21/2017 03:57 [facility] COMPARISON: CHEST SINGLE AP, October 16, 2017, 14:43. CT THORAX W CONTRAST, October 16, 2017, 15:10. CHEST SINGLE AP, M ay 2017, 15:15. INDICATIONS : Respiratory Failure. MEDICAL HISTORY : multitrauma, cervical spine fracture SURGICAL HISTORY : cervical halo ENCOUNTER: Subsequent ACUITY: 4 - 6 days PAIN SCORE: Non-responsive. LOCATION: Bilateral chest FINDINGS: A single AP supine portable view of the chest was obtained and again demonstrates an endotracheal tub e in place with the tip now located approximately 5-6 cm above the billy. The nasogastric tube remai ns in place. There is overlying artifact from a halo traction device. An Shane T. is projected over t he central chest. Hazy opacity is now noted at the right lung base. CONCLUSION: 1. Mild patchy airspace disease is now noted at the right lung base of concern for early pneumonia. 2. The left lung remains clear. Enrike Lawler MD on October 21, 2017 at 5:12 Board Certified Radiologist. This report was verified electronically.
[2017-10-21 05:38] LABS: BICARBONATE 28.7 MEQ/L (21.0-32.0); CALCIUM 7.8 MG/DL (8.5-10.1); CREATININE 0.46 MG/DL (0.60-1.30)
--- NOTE | 2017-10-21 06:51 | PD.ORT.PN ---
Subjective Subjective Remarks POD 2 s/p IMN left distal tibia s/p left shoulder dislocation intubated/sedated Objective Vitals Vital Signs Date Time Temp Pulse Resp B/P (MAP) Pulse Ox O2 Delivery O2 Flow Rate FiO2 10/21/17 04:29 100 30 10/21/17 04:00 100.2 101 13 105/56 (72) 100 10/21/17 04:00 30 10/21/17 01:08 100 30 10/21/17 00:00 30 10/21/17 00:00 81 10/21/17 00:00 99.1 81 12 11218 (49) 100 10/20/17 22:00 90 10/20/17 21:32 100 30 10/20/17 20:00 30 10/20/17 20:00 99.4 94 14 11218 (49) 100 10/20/17 20:00 94 10/20/17 19:00 100 Mechanical Ventilator 30 10/20/17 18:00 90 10/20/17 16:00 30 10/20/17 16:00 92 10/20/17 16:00 98.8 92 12 108/63 (78) 100 10/20/17 15:42 100 30 10/20/17 14:00 96 10/20/17 13:33 100 30 10/20/17 12:00 30 10/20/17 12:00 99.2 100 15 102/61 (75) 100 10/20/17 12:00 100 10/20/17 11:11 100 30 10/20/17 10:14 100 30 10/20/17 10:14 30 10/20/17 10:00 82 10/20/17 09:20 100 30 10/20/17 08:33 100 30 10/20/17 08:00 84 10/20/17 08:00 50 10/20/17 08:00 99.1 84 12 104/68 (80) 100 10/20/17 07:00 100 Mechanical Ventilator 50 I/O 10/20/17 10/20/17 10/20/17 10/21/17 10/21/17 10/21/17 07:00 15:00 23:00 07:00 15:00 23:00 Intake Total 1240 ml 120 ml 292.5 ml Output Total 800 ml 3550 ml 775 ml Balance 440 ml -3430 ml -482.5 ml IV Total 1000 ml 52.5 ml Other 240 ml 120 ml 240 ml Output Urine Total 800 ml 3550 ml 775 ml # Bowel Movements 0 0 0 Result Diagram: 10/21/175 10/21/175 Imaging Last 24 hours Impressions Cervical Spine X-Ray 10/17/17 1035 Signed Impressions: Service Date/Time: Tuesday, October 17, 2017 10:53 - CONCLUSION: 1. Resolution of the abnormal retrolisthesis of C3 on C4. 2. The fracture through the odontoid process is not visualized on this examination. 3. Hardware at C4, C5, and C6 is stable. 4. Prevertebral soft tissue swelling is present. Refugio Olivares MD Objective Remarks LLE: +short leg splint intact and in good repair. good motion of toes with full sensation LUE: minimal swelling. nvi Assessment & Plan Assessment and Plan 1) Left distal Tibial Shaft Fx s/p IMN - POD 2 -maintain splint. -NWB -elevate -Ortho surgeries complete 2) Left Shoulder Dislocation s/p closed reduction in ER -NWB -sling -no ROM or PT at this time - want to immobilize shoulder for atleast 1 week before beginning therapy Gilberto Hunt/Clinical Analyst PA October 21, 2017 06:51
[2017-10-21] MEDS: CHLORHEXIDINE 0.12% (ORAL KIT) 15 ML CUP MT SCH (08:00)
[2017-10-21] MEDS: BACITRACIN TOP OINT 15 GM TUBE TOP SCH ×2 (09:00→20:58)
[2017-10-21] MEDS: ENOXAPARIN SODIUM 30 MG/0.3 ML SYRINGE SQ SCH ×2 (09:00→20:58)
[2017-10-21] MEDS: DOCUSATE SODIUM 100 MG CAP PO SCH ×2 (09:00→20:38)
[2017-10-21] MEDS: FAMOTIDINE 20 MG TAB PO SCH ×2 (09:00→20:38)
[2017-10-21] MEDS: POTASSIUM CHLOR 20 MEQ PREMIX 100 ML IV PRN ×2 (09:01→12:19)
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
[2017-10-21] MEDS: NICOTINE 14 MG/24 HR PATCH T-DERMAL SCH (15:00)
[2017-10-21] MEDS ORDERED: MORPHINE SULFATE 4 MG/ML INJ IV PUSH PRN (15:00)
[2017-10-21] MEDS: POTASSIUM CHLORIDE INJ 20 MEQ in LACTATED RINGER'S 1000 ML INJ 1,000 ML IV SCH (17:29)
[2017-10-21] MEDS: REMOVE OLD NICODERM (NICOTINE) PATCH T-DERMAL SCH (21:00)
[2017-10-22] VITALS (19 sets, daily range): BP systolic 126–158; BP diastolic 77–95; PULSE 89–116; RESP 18–24; TEMP 98–99.5; O2SAT 95–100
[2017-10-22] MEDS: RESP: ALBUTEROL 2.5 MG/IPRATROPIUM 0.5 MG NEB (SCH) NEB ×3 (03:58→15:44)
[2017-10-22] MEDS: CHLORHEXIDINE GLUCONATE 2 % 1 PACK (2 CLOTHS) TOP SCH ×2 (04:00→23:53)
[2017-10-22 04:38] LABS: BASOPHIL % 0.5 % (0.0-2.0); EOSINOPHIL # 0.1 TH/MM3 (0-0.4); EOSINOPHIL % 1.5 % (0.0-4.0); HEMATOCRIT 28.9 % (39.0-51.0); HEMOGLOBIN 10.2 GM/DL (13.0-17.0); LYMPH % 9.8 % (9.0-44.0); LYMPHOCYTE # 0.8 TH/MM3 (1.0-4.8); MEAN CELL VOLUME 90.5 FL (80.0-100.0); MEAN CORPUSCULAR HGB CONC 35.4 % (32.0-36.0); MEAN PLATELET VOLUME 8.4 FL (7.0-11.0); MONO % 10.7 % (0.0-8.0); MONOCYTE # 0.8 TH/MM3 (0-0.9); NEUT % 77.5 % (16.0-70.0); PLATELET COUNT 288 TH/MM3 (150-450); RED BLOOD COUNT 3.19 MIL/MM3 (4.50-5.90); RED CELL DISTRIBUTION WIDTH 12.9 % (11.6-17.2); WHITE BLOOD COUNT 7.8 TH/MM3 (4.0-11.0)
[2017-10-22 05:00] LABS: BICARBONATE 30.1 MEQ/L (21.0-32.0); CALCIUM 8.2 MG/DL (8.5-10.1); CREATININE 0.46 MG/DL (0.60-1.30)
[2017-10-22] MEDS: POTASSIUM CHLORIDE INJ 20 MEQ in LACTATED RINGER'S 1000 ML INJ 1,000 ML IV SCH (06:00)
[2017-10-22] MEDS: ENOXAPARIN SODIUM 30 MG/0.3 ML SYRINGE SQ SCH ×2 (08:40→20:30)
[2017-10-22] MEDS: NICOTINE 14 MG/24 HR PATCH T-DERMAL SCH (08:41)
[2017-10-22] MEDS: FAMOTIDINE 20 MG TAB PO SCH ×2 (09:00→20:29)
[2017-10-22] MEDS: DOCUSATE SODIUM 100 MG CAP PO SCH ×2 (09:00→20:29)
[2017-10-22] MEDS: BACITRACIN TOP OINT 15 GM TUBE TOP SCH ×2 (09:00→20:31)
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
[2017-10-22] MEDS: REMOVE OLD NICODERM (NICOTINE) PATCH T-DERMAL SCH (20:30)
[2017-10-23] VITALS (13 sets, daily range): BP systolic 98–125; BP diastolic 58–79; PULSE 92–104; RESP 18–20; TEMP 98–98.4; O2SAT 93–97
[2017-10-23 05:33] LABS: AUTOMATED NEUTROPHIL # 5.7 TH/MM3 (1.8-7.7); BASOPHIL # 0.1 TH/MM3 (0-0.2); BASOPHIL % 0.7 % (0.0-2.0); EOSINOPHIL # 0.1 TH/MM3 (0-0.4); EOSINOPHIL % 1.1 % (0.0-4.0); HEMATOCRIT 29.7 % (39.0-51.0); HEMOGLOBIN 10.4 GM/DL (13.0-17.0); LYMPH % 11.6 % (9.0-44.0); LYMPHOCYTE # 0.9 TH/MM3 (1.0-4.8); MEAN CORPUSCULAR HEMOGLOBIN 31.4 PG (27.0-34.0); MEAN CORPUSCULAR HGB CONC 34.9 % (32.0-36.0); MEAN PLATELET VOLUME 8.2 FL (7.0-11.0); MONO % 16.3 % (0.0-8.0); MONOCYTE # 1.3 TH/MM3 (0-0.9); NEUT % 70.3 % (16.0-70.0); PLATELET COUNT 353 TH/MM3 (150-450); RED CELL DISTRIBUTION WIDTH 12.8 % (11.6-17.2); WHITE BLOOD COUNT 8.1 TH/MM3 (4.0-11.0)
[2017-10-23 05:59] LABS: BICARBONATE 28.7 MEQ/L (21.0-32.0); CALCIUM 8.6 MG/DL (8.5-10.1); CREATININE 0.53 MG/DL (0.60-1.30)
[2017-10-23 07:17] LABS: BANDS 5 % (0-6); BASOPHILS 2 % (0-2); LYMPHOCYTES 7 % (9-44); METAMYELOCYTES 1 % (0-1); MONOCYTES 10 % (0-8); MYELOCYTES 1 % (0-0); NEUTROPHIL # MANUAL DIFF 6.5 TH/MM3 (1.8-7.7); PLASMA CELLS 1 % (0-0); POLYS (SEG NEUTROPHILS) 72 % (16-70); PROMYELOCYTES 1 % (0-0)
[2017-10-23] MEDS: BACITRACIN TOP OINT 15 GM TUBE TOP SCH ×2 (09:00→21:00)
[2017-10-23] MEDS: SODIUM CHLORIDE 0.9% FLUSH 10 ML FLUSH IV FLUSH PRN (09:08)
[2017-10-23] MEDS: NICOTINE 14 MG/24 HR PATCH T-DERMAL SCH (09:08)
[2017-10-23] MEDS: DOCUSATE SODIUM 100 MG CAP PO SCH (09:08)
[2017-10-23] MEDS: ENOXAPARIN SODIUM 30 MG/0.3 ML SYRINGE SQ SCH (09:08)
[2017-10-23] MEDS: FAMOTIDINE 20 MG TAB PO SCH (09:08)
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
[2017-10-23] MEDS ORDERED: LACTULOSE SYRUP 20 GM/30 ML CUP PO ONE (17:15)
[2017-10-23] MEDS ORDERED: LACTATED RINGER'S 1000 ML INJ 1,000 ML IV ONE (17:15)
[2017-10-23] MEDS: DOCUSATE SODIUM 50 MG/SENNA 8.6 MG TAB PO SCH (21:00)
[2017-10-24] VITALS (7 sets, daily range): BP systolic 114–135; BP diastolic 74–82; PULSE 87–102; RESP 18; TEMP 97.8–99; O2SAT 90–95
[2017-10-24] MEDS: ENOXAPARIN SODIUM 30 MG/0.3 ML SYRINGE SQ SCH ×3 (00:38→22:02)
[2017-10-24] MEDS: REMOVE OLD NICODERM (NICOTINE) PATCH T-DERMAL SCH ×2 (00:39→22:04)
[2017-10-24] MEDS: DOCUSATE SODIUM 50 MG/SENNA 8.6 MG TAB PO SCH ×2 (08:39→21:00)
[2017-10-24] MEDS: NICOTINE 14 MG/24 HR PATCH T-DERMAL SCH (08:42)
[2017-10-24] MEDS: BACITRACIN TOP OINT 15 GM TUBE TOP SCH ×2 (08:44→22:03)
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
[2017-10-25] VITALS (7 sets, daily range): BP systolic 108–119; BP diastolic 62–77; PULSE 85–101; RESP 16–20; TEMP 97.9–98.6; O2SAT 92–97
--- NOTE | 2017-10-25 06:48 | PD.ORT.PN ---
Subjective Subjective Remarks POD 6 s/p IMN left distal tibia s/p left shoulder dislocation extubated. stable. no new complaints. resting comfortably. Objective Vitals Vital Signs Date Time Temp Pulse Resp B/P (MAP) Pulse Ox O2 Delivery O2 Flow Rate FiO2 10/25/17 04:38 97.9 85 18 119/69 (86) 97 10/25/17 00:12 98.0 89 16 112/73 (86) 94 10/24/17 22:11 Room Air 10/24/17 21:31 95 21 10/24/17 20:00 99.0 99 18 135/76 (95) 94 10/24/17 16:00 98.1 102 18 114/82 (93) 93 10/24/17 12:00 98.1 91 18 127/80 (96) 90 10/24/17 09:26 Room Air 10/24/17 08:00 97.9 87 18 124/81 (95) 90 I/O 10/24/17 10/24/17 10/24/17 10/25/17 10/25/17 10/25/17 07:00 15:00 23:00 07:00 15:00 23:00 Output Total 600 ml 375 ml 450 ml 300 ml Balance -600 ml -375 ml -450 ml -300 ml Output Urine Total 600 ml 375 ml 450 ml 300 ml # Voids 3 Result Diagram: 10/23/17 0419 10/23/17 0419 Imaging Last 24 hours Impressions Cervical Spine X-Ray 10/17/17 1035 Signed Impressions: Service Date/Time: Tuesday, October 17, 2017 10:53 - CONCLUSION: 1. Resolution of the abnormal retrolisthesis of C3 on C4. 2. The fracture through the odontoid process is not visualized on this examination. 3. Hardware at C4, C5, and C6 is stable. 4. Prevertebral soft tissue swelling is present. Refugio Olivares MD Objective Remarks LLE: +short leg splint intact and in good repair. good motion of toes with full sensation LUE: minimal swelling. nvi Assessment & Plan Assessment and Plan 1) Left distal Tibial Shaft Fx s/p IMN - POD 6 -maintain splint. -NWB -elevate -Ortho surgeries complete 2) Left Shoulder Dislocation s/p closed reduction in ER -NWB -sling -no ROM or PT at this time - want to immobilize shoulder for atleast 1 week before beginning therapy Gilberto Hunt/[employer] October 25, 2017 06:48
[2017-10-25] MEDS: ENOXAPARIN SODIUM 30 MG/0.3 ML SYRINGE SQ SCH ×2 (09:23→21:27)
[2017-10-25] MEDS: NICOTINE 14 MG/24 HR PATCH T-DERMAL SCH (09:24)
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
[2017-10-25] MEDS: DOCUSATE SODIUM 50 MG/SENNA 8.6 MG TAB PO SCH (21:00)
[2017-10-25] MEDS: BACITRACIN TOP OINT 15 GM TUBE TOP SCH (21:00)
[2017-10-25] MEDS: REMOVE OLD NICODERM (NICOTINE) PATCH T-DERMAL SCH (21:28)
[2017-10-26] VITALS (7 sets, daily range): BP systolic 103–115; BP diastolic 65–74; PULSE 83–110; RESP 18; TEMP 98–98.4; O2SAT 93–95
--- NOTE | 2017-10-26 08:05 | HHI.FF ---
Face to Face Verification Diagnosis: (1) Multiple fractures of cervical spine (2) Dislocation of left shoulder joint (3) Multiple facial fractures (4) Zygomatic fracture (5) Epidural hematoma (6) Closed head injury (7) C6 cervical fracture (8) Laceration of lower extremity (9) Alcohol intoxication Physical Therapy Order: Evaluate and Treat, Improve ambulation, Strength and gait training Home Health Nursing Order: Medical education Signs/symptoms of disease process Medication education-adverse effect Wound care and dressing changes (Halo pin care) Nursing assessment with vital signs I have seen patient Shamir Mcgraw on 10/26/17. My clinical findings support the need for the requested home health care services because: Ltd mobility - disease progression Deconditioned w/ increased weakness Limited ability to care for self High risk of falls Infection w/ risk of complications I certify that my clinical findings support that this patient is homebound because: Post-op weakness Impaired cognitive ability/safety Unsteady gait/balance Unsafe to leave home unassisted [id number] bed/chair Unable to use public transportation Claudette Sharma October 26, 2017 08:05
[2017-10-26] MEDS ORDERED: WHEEMIS3 (08:08)
[2017-10-26] MEDS ORDERED: WALKER WHEELS/F1 MIS (08:08)
[2017-10-26] MEDS: DOCUSATE SODIUM 50 MG/SENNA 8.6 MG TAB PO SCH ×2 (09:00→23:03)
[2017-10-26] MEDS: BACITRACIN TOP OINT 15 GM TUBE TOP SCH ×2 (09:00→23:06)
[2017-10-26] MEDS: NICOTINE 14 MG/24 HR PATCH T-DERMAL SCH (09:49)
[2017-10-26] MEDS: ENOXAPARIN SODIUM 30 MG/0.3 ML SYRINGE SQ SCH ×2 (09:51→23:03)
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
[2017-10-26] MEDS ORDERED: PERC5TAB12 PO (10:26)
[2017-10-26] MEDS ORDERED: MAGN30S PO (10:26)
[2017-10-26] MEDS ORDERED: PERI PO (10:26)
[2017-10-26] MEDS: REMOVE OLD NICODERM (NICOTINE) PATCH T-DERMAL SCH (21:00)
[2017-10-26] MEDS: diphenhydrAMINE HCL 25 MG CAP PO PRN (23:03)
[2017-10-27] VITALS (8 sets, daily range): BP systolic 103–120; BP diastolic 69–81; PULSE 78–103; RESP 16–18; TEMP 97.6–98.2; O2SAT 94–95
[2017-10-27] MEDS: DOCUSATE SODIUM 50 MG/SENNA 8.6 MG TAB PO SCH ×2 (09:32→21:00)
[2017-10-27] MEDS: NICOTINE 14 MG/24 HR PATCH T-DERMAL SCH (09:32)
[2017-10-27] MEDS: ENOXAPARIN SODIUM 30 MG/0.3 ML SYRINGE SQ SCH ×2 (09:33→21:18)
[2017-10-27] MEDS: BACITRACIN TOP OINT 15 GM TUBE TOP SCH ×2 (09:33→21:19)
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
[2017-10-27] MEDS: REMOVE OLD NICODERM (NICOTINE) PATCH T-DERMAL SCH (21:00)
[2017-10-27] MEDS: diphenhydrAMINE HCL 25 MG CAP PO PRN (21:18)
[2017-10-28] VITALS: BP 109/65; PULSE 83; RESP 16; TEMP 97.8; O2SAT 94
[2017-10-28 04:00] VITALS: BP 125/60; PULSE 90; RESP 16; TEMP 98; O2SAT 97
[2017-10-28 06:03] LABS: AUTOMATED NEUTROPHIL # 5.7 TH/MM3 (1.8-7.7); BASOPHIL # 0.1 TH/MM3 (0-0.2); BASOPHIL % 1.2 % (0.0-2.0); EOSINOPHIL # 0.2 TH/MM3 (0-0.4); EOSINOPHIL % 2.1 % (0.0-4.0); LYMPH % 21.9 % (9.0-44.0); LYMPHOCYTE # 1.9 TH/MM3 (1.0-4.8); MEAN CELL VOLUME 90.2 FL (80.0-100.0); MEAN CORPUSCULAR HGB CONC 34.3 % (32.0-36.0); MEAN PLATELET VOLUME 7.8 FL (7.0-11.0); MONOCYTE # 0.8 TH/MM3 (0-0.9); NEUT % 65.8 % (16.0-70.0); PLATELET COUNT 622 TH/MM3 (150-450); RED BLOOD COUNT 3.54 MIL/MM3 (4.50-5.90); RED CELL DISTRIBUTION WIDTH 13.4 % (11.6-17.2); WHITE BLOOD COUNT 8.7 TH/MM3 (4.0-11.0)
[2017-10-28 06:31] LABS: BICARBONATE 28.4 MEQ/L (21.0-32.0); CALCIUM 8.4 MG/DL (8.5-10.1); CREATININE 0.57 MG/DL (0.60-1.30)
[2017-10-28] MEDS: DOCUSATE SODIUM 50 MG/SENNA 8.6 MG TAB PO SCH ×2 (07:58→22:23)
[2017-10-28 08:00] VITALS: BP 122/59; PULSE 80; RESP 20; TEMP 97.8; O2SAT 95
[2017-10-28] MEDS: BACITRACIN TOP OINT 15 GM TUBE TOP SCH ×2 (08:00→22:24)
[2017-10-28] MEDS: ENOXAPARIN SODIUM 30 MG/0.3 ML SYRINGE SQ SCH ×2 (08:00→22:24)
[2017-10-28] MEDS: NICOTINE 14 MG/24 HR PATCH T-DERMAL SCH (08:00)
[2017-10-28 08:03] LABS: BANDS 14 % (0-6); LYMPHOCYTES 13 % (9-44); METAMYELOCYTES 1 % (0-1); MONOCYTES 6 % (0-8); MYELOCYTES 4 % (0-0); NEUTROPHIL # MANUAL DIFF 6.8 TH/MM3 (1.8-7.7); PLASMA CELLS 1 % (0-0); POLYS (SEG NEUTROPHILS) 59 % (16-70)
[2017-10-28 08:04] LABS: ACANTHOCYTES 1+ (NORMAL); POLYCHROMASIA 2.3 % (0.0-1.9)
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
[2017-10-28 12:00] VITALS: BP 99/54; PULSE 80; RESP 20; TEMP 98.7; O2SAT 96
[2017-10-28 16:00] VITALS: BP 98/57; PULSE 87; RESP 19; TEMP 97.7; O2SAT 96
[2017-10-28 20:00] VITALS: BP 114/56; PULSE 81; RESP 16; TEMP 98.6; O2SAT 97
[2017-10-28] MEDS: REMOVE OLD NICODERM (NICOTINE) PATCH T-DERMAL SCH (21:00)
[2017-10-28] MEDS: SODIUM CHLORIDE 0.9% FLUSH 10 ML FLUSH IV FLUSH PRN (22:23)
[2017-10-28] MEDS: diphenhydrAMINE HCL 25 MG CAP PO PRN (22:26)
[2017-10-29] VITALS: BP 110/62; PULSE 86; RESP 16; TEMP 98.4; O2SAT 98
[2017-10-29 04:44] VITALS: BP 110/60; PULSE 85; RESP 16; TEMP 97.6; O2SAT 98
--- NOTE | 2017-10-29 07:03 | PD.ORT.PN ---
Subjective Subjective Remarks POD 10 s/p IMN left distal tibia s/p left shoulder dislocation extubated. stable. no new complaints. resting comfortably. states stiffness in shoulder Objective Vitals Vital Signs Date Time Temp Pulse Resp B/P (MAP) Pulse Ox O2 Delivery O2 Flow Rate FiO2 10/29/17 04:44 97.6 85 16 110/60 (77) 98 10/29/17 00:00 98.4 86 16 110/62 (78) 98 10/28/17 20:00 98.6 81 16 114/56 (75) 97 10/28/17 18:17 21 10/28/17 16:00 97.7 87 19 98/57 (71) 96 10/28/17 12:00 98.7 80 20 99/54 (69) 96 10/28/17 08:00 97.8 80 20 122/59 (80) 95 I/O 10/28/17 10/28/17 10/28/17 10/29/17 10/29/17 10/29/17 07:00 15:00 23:00 07:00 15:00 23:00 Intake Total 120 ml 750 ml Output Total 600 ml Balance 120 ml 150 ml Intake Oral 120 ml 750 ml Output Urine Total 600 ml # Voids 4 # Bowel Movements 1 Result Diagram: 10/28/17 0355 10/28/17 0355 Imaging Last 24 hours Impressions Cervical Spine X-Ray 10/17/17 1035 Signed Impressions: Service Date/Time: Tuesday, October 17, 2017 10:53 - CONCLUSION: 1. Resolution of the abnormal retrolisthesis of C3 on C4. 2. The fracture through the odontoid process is not visualized on this examination. 3. Hardware at C4, C5, and C6 is stable. 4. Prevertebral soft tissue swelling is present. Refugio Olivares MD Objective Remarks LLE: +short leg splint intact. appears to have been removed and re-wrapped. nvi distally wtih good motion of toes LUE: minimal swelling. nvi. Passive forward FL of 90deg, Passive ABD - 90deg Assessment & Plan Assessment and Plan 1) Left distal Tibial Shaft Fx s/p IMN - POD 10 -MAINTAIN SPLINT AT ALL TIMES. DO NOT REMOVE UNDER ANY CIRCUMSTANCES -NWB -elevate -Ortho surgeries complete 2) Left Shoulder Dislocation s/p closed reduction in ER -NWB -sling -begin PT for PROM/AAROM of left shoulder Gilberto Hunt/Brine Supervisor PA October 29, 2017 07:03
[2017-10-29] MEDS: DOCUSATE SODIUM 50 MG/SENNA 8.6 MG TAB PO SCH ×2 (07:22→22:48)
[2017-10-29] MEDS: ENOXAPARIN SODIUM 30 MG/0.3 ML SYRINGE SQ SCH ×2 (07:23→22:48)
[2017-10-29] MEDS: NICOTINE 14 MG/24 HR PATCH T-DERMAL SCH (07:23)
[2017-10-29] MEDS: BACITRACIN TOP OINT 15 GM TUBE TOP SCH ×2 (07:24→22:48)
[2017-10-29 08:00] VITALS: BP 115/73; PULSE 84; RESP 18; TEMP 98.7; O2SAT 95
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
[2017-10-29 12:00] VITALS: BP 98/55; PULSE 97; RESP 18; TEMP 98.1; O2SAT 98
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
[2017-10-29 16:00] VITALS: BP 114/74; PULSE 113; RESP 18; TEMP 97.9; O2SAT 97
[2017-10-29 20:00] VITALS: BP 160/77; PULSE 93; RESP 18; TEMP 98.6; O2SAT 93
[2017-10-29] MEDS: REMOVE OLD NICODERM (NICOTINE) PATCH T-DERMAL SCH (21:00)
[2017-10-30] VITALS: BP 108/72; PULSE 78; RESP 16; TEMP 98.6; O2SAT 97
[2017-10-30 04:00] VITALS: BP 106/80; PULSE 76; RESP 16; O2SAT 97
[2017-10-30 08:00] VITALS: BP 115/71; PULSE 85; RESP 18; TEMP 97.4; O2SAT 95
[2017-10-30] MEDS: ENOXAPARIN SODIUM 30 MG/0.3 ML SYRINGE SQ SCH ×2 (08:40→23:43)
[2017-10-30] MEDS: DOCUSATE SODIUM 50 MG/SENNA 8.6 MG TAB PO SCH ×2 (08:40→23:43)
[2017-10-30] MEDS: NICOTINE 14 MG/24 HR PATCH T-DERMAL SCH (08:45)
[2017-10-30] MEDS: REMOVE OLD NICODERM (NICOTINE) PATCH T-DERMAL SCH (08:52)
[2017-10-30 12:00] VITALS: BP 93/62; PULSE 93; RESP 18; TEMP 98; O2SAT 97
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
[2017-10-30] MEDS: BACITRACIN TOP OINT 15 GM TUBE TOP SCH ×2 (14:14→23:43)
[2017-10-30 16:00] VITALS: BP 111/70; PULSE 88; RESP 18; TEMP 97.8; O2SAT 97
[2017-10-30 20:00] VITALS: BP 110/70; PULSE 89; RESP 18; TEMP 97.6; O2SAT 97
[2017-10-31] VITALS: BP 115/67; PULSE 80; RESP 19; TEMP 98; O2SAT 98
[2017-10-31 05:30] VITALS: BP 120/69; PULSE 76; RESP 21; TEMP 97.9; O2SAT 98
[2017-10-31 07:59] VITALS: BP 98/63; PULSE 90; RESP 18; TEMP 97.6; O2SAT 94
[2017-10-31] MEDS: DOCUSATE SODIUM 50 MG/SENNA 8.6 MG TAB PO SCH ×2 (08:16→21:00)
[2017-10-31] MEDS: ENOXAPARIN SODIUM 30 MG/0.3 ML SYRINGE SQ SCH ×2 (08:17→22:56)
[2017-10-31] MEDS: NICOTINE 14 MG/24 HR PATCH T-DERMAL SCH (08:17)
[2017-10-31] MEDS: BACITRACIN TOP OINT 15 GM TUBE TOP SCH ×2 (08:17→22:56)
[2017-10-31 08:40] LABS: AUTOMATED NEUTROPHIL # 5.5 TH/MM3 (1.8-7.7); BASOPHIL # 0.1 TH/MM3 (0-0.2); BASOPHIL % 1.3 % (0.0-2.0); EOSINOPHIL # 0.2 TH/MM3 (0-0.4); EOSINOPHIL % 1.9 % (0.0-4.0); HEMATOCRIT 34.4 % (39.0-51.0); HEMOGLOBIN 11.7 GM/DL (13.0-17.0); LYMPH % 17.3 % (9.0-44.0); LYMPHOCYTE # 1.4 TH/MM3 (1.0-4.8); MEAN CELL VOLUME 89.8 FL (80.0-100.0); MEAN CORPUSCULAR HEMOGLOBIN 30.6 PG (27.0-34.0); MEAN CORPUSCULAR HGB CONC 34.1 % (32.0-36.0); MEAN PLATELET VOLUME 7.8 FL (7.0-11.0); MONOCYTE # 0.7 TH/MM3 (0-0.9); NEUT % 70.5 % (16.0-70.0); PLATELET COUNT 683 TH/MM3 (150-450); RED BLOOD COUNT 3.84 MIL/MM3 (4.50-5.90); RED CELL DISTRIBUTION WIDTH 13.7 % (11.6-17.2); WHITE BLOOD COUNT 7.9 TH/MM3 (4.0-11.0)
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
[2017-10-31 12:00] VITALS: BP_SYST 108; BP_SYST 97; BP_DIAS 54; BP_DIAS 74; PULSE 94; PULSE 95; RESP 18; TEMP 96.4; TEMP 99.1; O2SAT 95; O2SAT 97
[2017-10-31 16:00] VITALS: BP 116/66; PULSE 88; RESP 18; TEMP 97.9; O2SAT 94
[2017-10-31 20:00] VITALS: BP 110/72; PULSE 91; RESP 18; TEMP 98.3; O2SAT 95
[2017-10-31] MEDS: REMOVE OLD NICODERM (NICOTINE) PATCH T-DERMAL SCH (21:00)
[2017-11-01 00:20] VITALS: BP 108/71; PULSE 90; RESP 17; TEMP 97.5; O2SAT 95
[2017-11-01 05:40] VITALS: BP 112/67; PULSE 80; RESP 20; TEMP 98.7; O2SAT 98
[2017-11-01 08:00] VITALS: BP 113/80; PULSE 86; RESP 20; TEMP 97.7; O2SAT 96
[2017-11-01] MEDS: ENOXAPARIN SODIUM 30 MG/0.3 ML SYRINGE SQ SCH ×2 (08:24→20:54)
[2017-11-01] MEDS: NICOTINE 14 MG/24 HR PATCH T-DERMAL SCH (08:24)
[2017-11-01] MEDS: BACITRACIN TOP OINT 15 GM TUBE TOP SCH ×2 (08:25→20:54)
[2017-11-01] MEDS: DOCUSATE SODIUM 50 MG/SENNA 8.6 MG TAB PO SCH ×2 (08:25→20:54)
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
[2017-11-01 12:00] VITALS: BP 117/73; PULSE 94; RESP 20; TEMP 97.8; O2SAT 95
[2017-11-01 16:00] VITALS: BP 90/51; PULSE 99; RESP 20; TEMP 97.8; O2SAT 96
[2017-11-01 20:00] VITALS: BP 121/72; PULSE 87; RESP 18; TEMP 97.7; O2SAT 97
[2017-11-01] MEDS: REMOVE OLD NICODERM (NICOTINE) PATCH T-DERMAL SCH (20:54)
[2017-11-02] VITALS: BP 99/66; PULSE 90; RESP 18; TEMP 97.9; O2SAT 94
[2017-11-02 07:56] VITALS: BP 117/74; PULSE 81; RESP 20; TEMP 97.9; O2SAT 96
[2017-11-02] MEDS: NICOTINE 14 MG/24 HR PATCH T-DERMAL SCH (08:24)
[2017-11-02] MEDS: ENOXAPARIN SODIUM 30 MG/0.3 ML SYRINGE SQ SCH ×2 (08:24→20:13)
[2017-11-02] MEDS: DOCUSATE SODIUM 50 MG/SENNA 8.6 MG TAB PO SCH ×2 (08:27→20:15)
[2017-11-02] MEDS: BACITRACIN TOP OINT 15 GM TUBE TOP SCH ×2 (08:28→20:18)
[2017-11-02 12:00] VITALS: BP 108/73; PULSE 90; RESP 20; TEMP 98; O2SAT 95
[2017-11-02 16:49] VITALS: BP 100/66; PULSE 94; RESP 20; TEMP 98.7; O2SAT 94
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
[2017-11-02 19:46] VITALS: BP 121/60; PULSE 96; RESP 20; TEMP 98; O2SAT 96
[2017-11-02] MEDS: SODIUM CHLORIDE 0.9% FLUSH 10 ML FLUSH IV FLUSH PRN (20:13)
[2017-11-02] MEDS: REMOVE OLD NICODERM (NICOTINE) PATCH T-DERMAL SCH (20:17)
[2017-11-03] VITALS: BP 105/68; PULSE 92; RESP 18; TEMP 98.3; O2SAT 96
[2017-11-03 04:00] VITALS: BP 108/65; PULSE 89; RESP 18; TEMP 98; O2SAT 94
[2017-11-03 08:00] VITALS: BP 115/79; PULSE 88; RESP 17; TEMP 97.3; O2SAT 96
[2017-11-03] MEDS: DOCUSATE SODIUM 50 MG/SENNA 8.6 MG TAB PO SCH ×2 (08:35→20:12)
[2017-11-03] MEDS: ENOXAPARIN SODIUM 30 MG/0.3 ML SYRINGE SQ SCH ×2 (08:35→20:13)
[2017-11-03] MEDS: NICOTINE 14 MG/24 HR PATCH T-DERMAL SCH (08:35)
[2017-11-03] MEDS: BACITRACIN TOP OINT 15 GM TUBE TOP SCH ×2 (08:37→21:00)
[2017-11-03 12:00] VITALS: BP 104/67; PULSE 104; RESP 17; TEMP 97.9; O2SAT 96
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
--- NOTE | 2017-11-03 14:26 | HHI.FF ---
Face to Face Verification Diagnosis: (1) C6 cervical fracture (2) Dislocation of left shoulder joint (3) Multiple facial fractures (4) Multiple fractures of cervical spine (5) Closed head injury Home Health Nursing Order: Medical education Medication education-adverse effect Wound care and dressing changes Nursing assessment with vital signs Consumer Loan Specialist Order: To Evaluate: Living conditions/environment, Support services Order: To Provide: Community services I have seen patient Shamir Mcgraw on 11/03/17. My clinical findings support the need for the requested home health care services because: Limited ability to care for self Need for psychosocial assistance I certify that my clinical findings support that this patient is homebound because: Need for psychosocial assistance Alba Mondragon MD November 03, 2017 14:25
[2017-11-03 16:00] VITALS: BP 105/68; PULSE 97; RESP 17; TEMP 97.9; O2SAT 95
[2017-11-03 20:00] VITALS: BP 113/77; PULSE 100; RESP 18; TEMP 98.3; O2SAT 97
[2017-11-03] MEDS: REMOVE OLD NICODERM (NICOTINE) PATCH T-DERMAL SCH (21:00)
[2017-11-04] VITALS: BP 101/65; PULSE 92; RESP 18; TEMP 98; O2SAT 96
[2017-11-04 04:00] VITALS: BP 99/77; PULSE 86; RESP 18; TEMP 98; O2SAT 96
--- NOTE | 2017-11-04 08:04 | HHI.FF ---
Face to Face Verification Diagnosis: (1) Tibia fracture (2) Dislocation of left shoulder joint Physical Therapy Gait training, Transfer training, bed to chair, Wheelchair training Left LE Weight Bearing: Non WB Occupational Therapy Left UE Weight Bearing: Non WB Left UE Range of Motion: Passive ROM Nursing Dressing Changes: Do not change dressing Additional Instructions maintain short leg splint at all times I have seen patient Shamir Mcgraw on 11/04/17. My clinical findings support the need for the requested home health care services because: Ltd mobility - disease progression I certify that my clinical findings support that this patient is homebound because: Post-op weakness Gilberto Hunt/Bridge Toll Collector JAMISON November 04, 2017 08:04
--- NOTE | 2017-11-04 08:08 | PD.ORT.PN ---
Subjective Subjective Remarks POD 16 s/p IMN left distal tibia s/p left shoulder dislocation doing well. pain controlled. no new complaints. states has been working on shoulder motion but limited due to the halo Objective Vitals Vital Signs Date Time Temp Pulse Resp B/P (MAP) Pulse Ox O2 Delivery O2 Flow Rate FiO2 11/04/17 04:00 98.0 86 18 99/77 (84) 96 11/04/17 00:00 98.0 92 18 101/65 (77) 96 11/03/17 20:00 98.3 100 18 113/77 (89) 97 11/03/17 16:00 97.9 97 17 105/68 (80) 95 11/03/17 12:00 97.9 104 17 104/67 (79) 96 I/O 11/03/17 11/03/17 11/03/17 11/04/17 11/04/17 11/04/17 07:00 15:00 23:00 07:00 15:00 23:00 Output Total 175 ml 150 ml Balance -175 ml -150 ml Output Urine Total 175 ml 150 ml # Voids 3 Result Diagram: 10/31/17 0709 Imaging Last 24 hours Impressions Cervical Spine X-Ray 10/17/17 1035 Signed Impressions: Service Date/Time: Tuesday, October 17, 2017 10:53 - CONCLUSION: 1. Resolution of the abnormal retrolisthesis of C3 on C4. 2. The fracture through the odontoid process is not visualized on this examination. 3. Hardware at C4, C5, and C6 is stable. 4. Prevertebral soft tissue swelling is present. Refugio Olivares MD Objective Remarks LLE: +short leg splint intact. removed. incisions visualized. healed well. no drainage. nvi LUE: minimal swelling. nvi. Passive forward FL of 90deg, Passive ABD - 90deg Assessment & Plan Assessment and Plan 1) Left distal Tibial Shaft Fx s/p IMN - POD 16 -filemon and sutures DCd at bedside today -orthotech to resplint -NWB -elevate -Ortho surgeries complete 2) Left Shoulder Dislocation s/p closed reduction in ER -NWB -sling -begin PT for PROM/AAROM of left shoulder -ortho clear for discharge -f/u with [facility] in 1 month Gilberto Hunt PA/Compressor Stations Superintendent PA November 04, 2017 08:08
[2017-11-04 08:10] VITALS: BP 128/82; PULSE 86; RESP 20; TEMP 97.6; O2SAT 95
[2017-11-04] MEDS: NICOTINE 14 MG/24 HR PATCH T-DERMAL SCH (09:37)
[2017-11-04] MEDS: DOCUSATE SODIUM 50 MG/SENNA 8.6 MG TAB PO SCH (09:37)
[2017-11-04] MEDS: ENOXAPARIN SODIUM 30 MG/0.3 ML SYRINGE SQ SCH (09:37)
[2017-11-04] MEDS: BACITRACIN TOP OINT 15 GM TUBE TOP SCH (09:37)
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
[2017-11-04 12:15] VITALS: BP 114/76; PULSE 95; RESP 20; TEMP 98.1; O2SAT 97
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
== END 2017-11-04 15:42 | disposition home health service (06) | DRG 471 ==
LOC: NEPI 14:44 → EDBD 15:34 → NEDA 15:34 → MERGE 15:34 → N03A 19:09 → N03B 10-22 10:26 → N05B 10-23 16:26
PROVIDERS: ADMIT Family Medicine; ATTEND Family Medicine
PROC: 0RSKXZZ Reposition Left Shoulder Joint, External Approach (ICD-10-PCS; 2017-10-16)
PROC: 0PS3XZZ Reposition Cervical Vertebra, External Approach (ICD-10-PCS; 2017-10-17)
PROC: 2W62X0Z Traction of Neck using Traction Apparatus (ICD-10-PCS; 2017-10-17)
PROC: 0RG10J1 Fusion of Cervical Vertebral Joint with Synthetic Substitute, Posterior Approach, Posterior Column, Open Approach (ICD-10-PCS; 2017-10-18)
PROC: 5A1945Z Respiratory Ventilation, 24-96 Consecutive Hours (ICD-10-PCS; 2017-10-18)
PROC: 07DR3ZZ Extraction of Iliac Bone Marrow, Percutaneous Approach (ICD-10-PCS; 2017-10-18)
PROC: 0BH17EZ Insertion of Endotracheal Airway into Trachea, Via Natural or Artificial Opening (ICD-10-PCS; 2017-10-18)
PROC: 0RG2071 Fusion of 2 or more Cervical Vertebral Joints with Autologous Tissue Substitute, Posterior Approach, Posterior Column, Open Approach (ICD-10-PCS; principal; 2017-10-18 08:25)
PROC: 0QSH06Z Reposition Left Tibia with Intramedullary Internal Fixation Device, Open Approach (ICD-10-PCS; 2017-10-19)
DX: S12.110A Anterior displaced Type II dens fracture, initial encounter for closed fracture (principal); S06.4X9A Epidural hemorrhage with loss of consciousness of unspecified duration, initial encounter; S12.401A Unspecified nondisplaced fracture of fifth cervical vertebra, initial encounter for closed fracture; J96.90 Respiratory failure, unspecified, unspecified whether with hypoxia or hypercapnia; S02.31XA Fracture of orbital floor, right side, initial encounter for closed fracture; S82.202A Unspecified fracture of shaft of left tibia, initial encounter for closed fracture; S02.40CA Maxillary fracture, right side, initial encounter for closed fracture; S43.035A Inferior dislocation of left humerus, initial encounter; S02.2XXA Fracture of nasal bones, initial encounter for closed fracture; J44.9 Chronic obstructive pulmonary disease, unspecified; F10.220 Alcohol dependence with intoxication, uncomplicated; S13.4XXA Sprain of ligaments of cervical spine, initial encounter; Y90.8 Blood alcohol level of 240 mg/100 ml or more; F17.210 Nicotine dependence, cigarettes, uncomplicated; M53.2X2 Spinal instabilities, cervical region; R40.2421 Glasgow coma scale score 9-12, in the field [EMT or ambulance]; S01.81XA Laceration without foreign body of other part of head, initial encounter; R41.3 Other amnesia; D47.3 Essential (hemorrhagic) thrombocythemia; V13.4XXA Pedal cycle driver injured in collision with car, pick-up truck or van in traffic accident, initial encounter; Y93.55 Activity, bike riding; Z59.0 Homelessness; Y92.410 Unspecified street and highway as the place of occurrence of the external cause
CPT/HCPCS: 70450; 70486; 71045; 71260; 72020; 72040; 72125; 72141; 72170; 73020; 73030; 73590; 73600; 74177; 76000; 80048; 80053; 80307; 82805; 83735; 84100; 84132; 84155; 85007; 85025; 85027; 85610; 85730; 86850; 86900; 86901; 86920; 87641; 90715; 93005; 94002; 94003; 94150; 94640; 94664; C1713; J0131; J1170; J1580; J1650; J1940; J2250; J2270; J2370; J2405; J3010; J3370; J3480; J7050; J7060; J7120; L0150; L0172; L0810; Q9967

== ENCOUNTER 2017-11-09 21:47 | Inpatient (IN) | payer SELFPAY ==
[~2017-11-09] VITALS: Ht 172.7 cm; Wt 72.0 kg
[~2017-11-09 21:47] MED LIST: MAGN30S PO; PERC5TAB12 PO; PERI PO; WALKER WHEELS/F1 MIS; WHEEMIS3
[2017-11-09 22:02] VITALS: BP 162/92; PULSE 101; PULSE 94; RESP 18; TEMP 98.5; O2SAT 96; O2SAT 97
[2017-11-09 22:07] VITALS: RESP 16
[2017-11-09] MEDS ORDERED: MORPHINE SULFATE 4 MG/ML INJ IV PUSH ONE (22:15)
[2017-11-09] MEDS ORDERED: SODIUM CHLORIDE 0.9% FLUSH 10 ML FLUSH IV FLUSH PRN (22:15)
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
[2017-11-09 22:45] LABS: AUTOMATED NEUTROPHIL # 13.8 TH/MM3 (1.8-7.7); BASOPHIL # 0.2 TH/MM3 (0-0.2); BASOPHIL % 1.1 % (0.0-2.0); HEMATOCRIT 37.4 % (39.0-51.0); HEMOGLOBIN 12.8 GM/DL (13.0-17.0); LYMPH % 3.5 % (9.0-44.0); LYMPHOCYTE # 0.5 TH/MM3 (1.0-4.8); MEAN CELL VOLUME 88.3 FL (80.0-100.0); MEAN CORPUSCULAR HEMOGLOBIN 30.2 PG (27.0-34.0); MEAN CORPUSCULAR HGB CONC 34.1 % (32.0-36.0); MONO % 6.7 % (0.0-8.0); NEUT % 88.7 % (16.0-70.0); PLATELET COUNT 467 TH/MM3 (150-450); RED BLOOD COUNT 4.23 MIL/MM3 (4.50-5.90); RED CELL DISTRIBUTION WIDTH 13.5 % (11.6-17.2); WHITE BLOOD COUNT 15.5 TH/MM3 (4.0-11.0)
[2017-11-09 22:46] LABS: ALT (GPT) 21 U/L (12-78)
[2017-11-09 22:48] LABS: ALKALINE PHOSPHATASE 109 U/L (45-117); TOTAL BILIRUBIN ADULT 0.7 MG/DL (0.2-1.0); TOTAL PROTEIN 8.4 GM/DL (6.4-8.2)
[2017-11-09 22:52] LABS: AST (GOT) 18 U/L (15-37); BICARBONATE 29.7 MEQ/L (21.0-32.0); BLOOD UREA NITROGEN 8 MG/DL (7-18); CALCIUM 9.3 MG/DL (8.5-10.1); CHLORIDE 93 MEQ/L (98-107); CREATININE 0.71 MG/DL (0.60-1.30); GLOMERULAR FILTRATION RATE 115 ML/MIN (>89); GLUCOSE,RANDOM 142 MG/DL (74-106); SODIUM (NA) 130 MEQ/L (136-145)
--- NOTE | 2017-11-09 23:06 | RADRPT ---
EXAM DATE: 11/09/2017 11:00 PM EDT AGE/SEX: 56 years / Male INDICATIONS: Testicular pain/swelling. CLINICAL DATA: This is the patient's initial encounter. Patient reports that signs and symptoms have been present for 1 day and indicates a pain score of 8/10. MEDICAL/SURGICAL HISTORY: . Neck pain. Testicular pain. Depression. Anxiety. None. COMPARISON: No prior exams available for comparison. No external comparison. MEASUREMENTS (cm x cm x cm): Right Testicle:__3.5 x 2.5 x 2.6 cm Left Testicle:__3.8 x 2.5 x 2.8 cm FINDINGS: Right Testicle: Homogeneous echotexture without intra or extratesticular mass. Blood flow is symmet marissa and within normal limits. No hydrocele or varicocele. Epididymis is within normal limits. Left Testicle: Homogeneous echotexture without intra or extratesticular mass. Blood flow is symmetr ic and within normal limits. There is a large complex hydrocele. Epididymis is within normal limits. Scrotum: Within normal limits. CONCLUSION: 1. Large complex hydrocele on the left. Electronically signed by: Tobin Nair MD 11/09/2017 11:04 PM EDT
[2017-11-09 23:24] LABS: PROTHROMBIN TIME - PATIENT 10.5 SEC (9.8-11.6)
[2017-11-10] VITALS (7 sets, daily range): BP systolic 125–147; BP diastolic 81–93; PULSE 87–109; RESP 16–20; TEMP 96.5–99.9; O2SAT 92–98
[2017-11-10] MEDS ORDERED: NALOXONE HCL 0.4 MG/ML AMP IV PUSH PRN (01:15)
[2017-11-10] MEDS ORDERED: LACTULOSE SYRUP 20 GM/30 ML CUP PO PRN (01:15)
[2017-11-10] MEDS ORDERED: BISACODYL 10 MG SUPP RECTAL PRN (01:15)
[2017-11-10] MEDS ORDERED: ACETAMINOPHEN 325 MG TAB PO PRN (01:15)
[2017-11-10] MEDS ORDERED: MORPHINE SULFATE 4 MG/ML INJ IV PUSH PRN (01:15)
[2017-11-10] MEDS ORDERED: MAGNESIUM HYDROXIDE SUSP 30 ML CUP PO PRN (01:15)
[2017-11-10] MEDS ORDERED: SODIUM CHLORIDE 0.9% FLUSH 10 ML FLUSH IV FLUSH PRN (01:15)
[2017-11-10] MEDS ORDERED: SENNOSIDES 8.6 MG TAB PO PRN (01:15)
[2017-11-10] MEDS ORDERED: ONDANSETRON ODT 4 MG TAB PO PRN (01:15)
[2017-11-10] MEDS: SODIUM CHLOR 0.9% 1000 ML INJ 1,000 ML IV SCH ×3 (01:23→22:14)
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
[2017-11-10 02:38] LABS: BACTERIA, URINE OCC /hpf; BILIRUBIN, URINE NEG (NEG); BLOOD, URINE TRACE (NEG); GLUCOSE,URINE NEG (NEG); KETONE, URINE TRACE mg/dL (NEG); MUCUS URINE FEW /lpf (OCC); NITRITE,URINE NEG (NEG); PH, URINE 5.5 (5.0-8.5); TRANSITIONAL EPI CELLS, URINE <1 /hpf; URINE COLOR YELLOW (YELLW/STRAW); URINE LEUKOCYTE ESTERASE MOD (NEG)
--- NOTE | 2017-11-10 02:45 | RADRPT ---
EXAM DATE: 11/10/2017 2:30 AM EDT AGE/SEX: 56 years / Male INDICATIONS: Evaluate for pneumonia, pneumothorax and or communicable disease. CLINICAL DATA: This is the patient's initial encounter. Patient reports that signs and symptoms have been present for 1 day and indicates a pain score of 0/10. MEDICAL/SURGICAL HISTORY: None. None. COMPARISON: [facility] – [place], CHEST SINGLE AP, 10/16/2017. . FINDINGS: The lungs are clear without infiltrate, nodule, or mass. There is no appreciable pleural effusion for technique. Heart and mediastinum are unremarkable. CONCLUSION: No acute cardiopulmonary disease. Electronically signed by: Tobin Nair MD 11/10/2017 2:43 AM EDT
[2017-11-10] MEDS: LEVOFLOXACIN 750 MG PREMIX INJ 150 ML IV SCH (08:21)
[2017-11-10] MEDS: SODIUM CHLORIDE 0.9% FLUSH 10 ML FLUSH IV FLUSH SCH ×2 (08:21→21:36)
[2017-11-10] MEDS: DOCUSATE SODIUM 50 MG/SENNA 8.6 MG TAB PO SCH ×2 (08:21→22:14)
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
[2017-11-11] VITALS (7 sets, daily range): BP systolic 113–136; BP diastolic 58–89; PULSE 81–94; RESP 16–20; TEMP 96.4–98.8; O2SAT 94–98
[2017-11-11 07:47] LABS: AUTOMATED NEUTROPHIL # 11.2 TH/MM3 (1.8-7.7); BASOPHIL # 0.1 TH/MM3 (0-0.2); BASOPHIL % 0.8 % (0.0-2.0); EOSINOPHIL # 0.1 TH/MM3 (0-0.4); HEMATOCRIT 33.5 % (39.0-51.0); HEMOGLOBIN 11.2 GM/DL (13.0-17.0); LYMPH % 8.5 % (9.0-44.0); LYMPHOCYTE # 1.2 TH/MM3 (1.0-4.8); MEAN CELL VOLUME 87.8 FL (80.0-100.0); MEAN CORPUSCULAR HEMOGLOBIN 29.4 PG (27.0-34.0); MEAN CORPUSCULAR HGB CONC 33.5 % (32.0-36.0); MONO % 8.2 % (0.0-8.0); MONOCYTE # 1.1 TH/MM3 (0-0.9); NEUT % 81.5 % (16.0-70.0); PLATELET COUNT 378 TH/MM3 (150-450); RED BLOOD COUNT 3.81 MIL/MM3 (4.50-5.90); RED CELL DISTRIBUTION WIDTH 13.7 % (11.6-17.2); WHITE BLOOD COUNT 13.7 TH/MM3 (4.0-11.0)
[2017-11-11 08:08] LABS: BICARBONATE 26.4 MEQ/L (21.0-32.0); CALCIUM 8.6 MG/DL (8.5-10.1); CREATININE 0.51 MG/DL (0.60-1.30)
[2017-11-11] MEDS: DOCUSATE SODIUM 50 MG/SENNA 8.6 MG TAB PO SCH ×2 (08:47→21:01)
[2017-11-11] MEDS: SODIUM CHLORIDE 0.9% FLUSH 10 ML FLUSH IV FLUSH SCH ×2 (08:48→21:01)
[2017-11-11] MEDS: LEVOFLOXACIN 750 MG PREMIX INJ 150 ML IV SCH (08:48)
[2017-11-11] MEDS: SODIUM CHLOR 0.9% 1000 ML INJ 1,000 ML IV SCH ×3 (12:20→23:00)
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
--- NOTE | 2017-11-11 14:34 | HHI.PR ---
Subjective Patient symptoms today Pt seen and examined. Feeling better. Objective Vital Signs Vital Signs Date Time Temp Pulse Resp B/P (MAP) Pulse Ox O2 Delivery O2 Flow Rate FiO2 11/11/17 12:00 96.4 94 20 113/58 (76) 98 11/11/17 08:00 96.9 89 20 124/79 (94) 97 11/11/17 04:00 98.7 81 17 118/89 (99) 95 11/11/17 01:36 18 11/11/17 00:00 98.3 91 17 123/87 (99) 94 11/10/17 21:30 98.0 91 16 125/81 (96) 97 11/10/17 16:01 96.5 87 20 138/92 (107) 98 Intake & Output 11/11/17 11/11/17 07:00 19:00 Intake Total 950 ml Output Total 650 ml Balance -650 ml 950 ml IV Total 950 ml Output Urine Total 650 ml Result Diagram: 11/11/17 0700 11/11/17 0700 Objective Remarks Abd:soft,nt,nd : Left testicle improving; less swelling and redness Medications and IVs Current Medications Medications (Trade) Dose Ordered Sig/Tari Route Start Time Stop Time Status Last Admin (Morphine Inj) 4 mg Q3H PRN IV PUSH 11/10/17 01:15 11/11/17 01:31 Sodium Chloride 1,000 ml @ 100 mls/hr Q10H IV 11/10/17 01:07 11/11/17 12:20 (NS Flush) 2 ml UNSCH PRN IV FLUSH 11/10/17 01:15 (NS Flush) 2 ml BID IV FLUSH 11/10/17 09:00 (Tylenol) 650 mg Q4H PRN PO 11/10/17 01:15 (Zofran Odt) 4 mg Q6H PRN PO 11/10/17 01:15 (Narcan Inj) 0.4 mg UNSCH PRN IV PUSH 11/10/17 01:15 (Joie-Colace) 1 tab BID PO 11/10/17 09:00 11/11/17 08:47 (Milk Of Magnesia Liq) 30 ml Q12H PRN PO 11/10/17 01:15 (Senokot) 17.2 mg Q12H PRN PO 11/10/17 01:15 (Dulcolax Supp) 10 mg DAILY PRN RECTAL 11/10/17 01:15 (Lactulose Liq) 30 ml DAILY PRN PO 11/10/17 01:15 Levofloxacin/ Dextrose 150 ml @ 100 mls/hr Q24H IV 11/10/17 08:00 11/11/17 08:48 Assessment and Plan Assessment and Plan 56 y.o male with left epididymal orchitis. Clinically improving Continue outpt abx for 2 weeks F/U in office in one month Christopher Estrada DO November 11, 2017 14:34
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
[2017-11-11] MEDS ORDERED: LACTCHW3 CHEW (14:59)
[2017-11-11] MEDS ORDERED: LEVA500T33 PO (14:59)
[2017-11-12 03:47] VITALS: BP 130/92; PULSE 94; RESP 16; TEMP 98.3; O2SAT 93
[2017-11-12 08:04] VITALS: BP 140/72; PULSE 88; RESP 20; TEMP 97.9; O2SAT 96
[2017-11-12] MEDS: DOCUSATE SODIUM 50 MG/SENNA 8.6 MG TAB PO SCH (09:06)
[2017-11-12] MEDS: SODIUM CHLORIDE 0.9% FLUSH 10 ML FLUSH IV FLUSH SCH (09:06)
[2017-11-12] MEDS: LEVOFLOXACIN 750 MG PREMIX INJ 150 ML IV SCH (09:06)
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
[2017-11-12 11:54] LABS: AUTOMATED NEUTROPHIL # 6.5 TH/MM3 (1.8-7.7); BASOPHIL # 0.1 TH/MM3 (0-0.2); BASOPHIL % 0.7 % (0.0-2.0); EOSINOPHIL # 0.1 TH/MM3 (0-0.4); EOSINOPHIL % 1.4 % (0.0-4.0); HEMATOCRIT 36.1 % (39.0-51.0); HEMOGLOBIN 12.1 GM/DL (13.0-17.0); LYMPHOCYTE # 0.8 TH/MM3 (1.0-4.8); MEAN CELL VOLUME 86.9 FL (80.0-100.0); MEAN CORPUSCULAR HEMOGLOBIN 29.1 PG (27.0-34.0); MEAN CORPUSCULAR HGB CONC 33.5 % (32.0-36.0); MEAN PLATELET VOLUME 7.6 FL (7.0-11.0); MONOCYTE # 0.8 TH/MM3 (0-0.9); NEUT % 77.9 % (16.0-70.0); PLATELET COUNT 377 TH/MM3 (150-450); RED BLOOD COUNT 4.15 MIL/MM3 (4.50-5.90); RED CELL DISTRIBUTION WIDTH 13.8 % (11.6-17.2); WHITE BLOOD COUNT 8.4 TH/MM3 (4.0-11.0)
[2017-11-12 12:17] LABS: BICARBONATE 27.4 MEQ/L (21.0-32.0); CALCIUM 8.8 MG/DL (8.5-10.1); CREATININE 0.57 MG/DL (0.60-1.30)
[2017-11-12 12:36] VITALS: BP 148/62; PULSE 78; RESP 18; TEMP 98.2; O2SAT 96
== END 2017-11-12 16:12 | disposition home health service (06) | DRG 872 ==
LOC: NEPC 21:47 → NEDA 23:55 → NEPHCDU 11-10 02:44 → OBSVTOIN 11-10 15:08
PROVIDERS: ADMIT Family Medicine; ATTEND Family Medicine
DX: A41.9 Sepsis, unspecified organism (principal); E87.1 Hypo-osmolality and hyponatremia; N43.3 Hydrocele, unspecified; F41.9 Anxiety disorder, unspecified; D72.829 Elevated white blood cell count, unspecified; N45.3 Epididymo-orchitis; F12.90 Cannabis use, unspecified, uncomplicated; F32.9 Major depressive disorder, single episode, unspecified; S12.490D Other displaced fracture of fifth cervical vertebra, subsequent encounter for fracture with routine healing; V13.4XXD Pedal cycle driver injured in collision with car, pick-up truck or van in traffic accident, subsequent encounter; Z87.891 Personal history of nicotine dependence; Z88.0 Allergy status to penicillin; Z98.1 Arthrodesis status
CPT/HCPCS: 71045; 76870; 80048; 80053; 81001; 85025; 85610; 85730; 87040; 87077; 87086; 87186; 93975; G8987-GP; G8988-GP; J1956; J2270; J7030

== ENCOUNTER 2017-11-25 13:26 | Emergency (ER) | payer SELFPAY ==
[~2017-11-25] VITALS: Ht 172.7 cm; Wt 62.0 kg
[~2017-11-25 13:26] MED LIST changes: +LACTCHW3 CHEW; +LEVA500T33 PO
[2017-11-25 13:48] VITALS: BP 144/89; PULSE 101; RESP 16; O2SAT 98
--- NOTE | 2017-11-25 13:58 | PD ---
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 Aguilar on October 17 in the setting of trauma who presents to the emergency department having felt 1 of his pins move and heard a pop yesterday and since then he has been having pain at all of his pin sites, constant, moderate severity, worse with movement and improved with rest. He has not followed up with a neurosurgeon due to barriers related to insurance and transportation. PFSH Past Medical History Asthma: No Anxiety: Yes Depression: Yes Cancer: No Cardiovascular Problems: No Endocrine: No Gastrointestinal Disorders: No Genitourinary: No Immune Disorder: No Implanted Vascular Access Dvce: No Musculoskeletal: No Neurologic: No Reproductive: No Respiratory: Yes (smoker, cough) Immunizations Current: Yes Past Surgical History Other Surgery: No Social History Alcohol Use: Yes Tobacco Use: No Substance Use: Yes (marijuana) Allergies-Medications (Allergen,Severity, Reaction): Coded Allergies: Penicillins (Verified Allergy, Unknown, 11/25/17) Reported Meds & Prescriptions Reported Meds & Active Scripts Active No Active Prescriptions or Reported Medications Review of Systems Except as stated in HPI: all other systems reviewed are Neg Physical Exam Narrative GENERAL: Cachectic, chronically ill-appearing SKIN: Focused skin assessment warm and dry. HEAD: Atraumatic. Normocephalic. EYES: Pupils equal and round. No injection or drainage. ENT: Moist mucous membranes NECK: Trachea midline. CARDIOVASCULAR: Regular rate and rhythm. No murmur appreciated. RESPIRATORY: Clear to auscultation. Breath sounds equal bilaterally. GASTROINTESTINAL: Abdomen soft, non-tender, nondistended. MUSCULOSKELETAL: No obvious deformities. NEUROLOGICAL: Awake and alert. No obvious cranial nerve deficits. Moving all extremities. PSYCHIATRIC: Appropriate mood and affect; insight and judgment normal. Data Data Last Documented VS Vital Signs Date Time Temp Pulse Resp B/P (MAP) Pulse Ox O2 Delivery O2 Flow Rate FiO2 11/25/17 13:48 101 16 144/89 (107) 98 Orders Orders Spine, Cervical - Ltd (Ap&Lat) (11/25/17 ) [place] J Collar (11/25/17 ) MDM Medical Decision Making Medical Screen Exam Complete: Yes Emergency Medical Condition: Yes Interpretation(s) mild tachycardia Last 24 hours Impressions Cervical Spine X-Ray 11/25/17 0000 Signed Impressions: CONCLUSION: Postsurgical changes of the cervical spine as described above. No evidence of malalignment or disruption of the fusion devices. Differential Diagnosis Halo malfunction Narrative Course This is a 56-year-old male who presents to the emergency department reporting that he felt something pop in his halo when he felt his halo moving and he has pain at the pin sites. He has not followed up with neurosurgery as an outpatient. I spoke to the physician assistant professor of english Denton Marino who reviewed cervical spine x-rays with Dr. Bell. They both agree that the patients halo can be removed and he can be discharged in a [place] J collar. Halo was removed and Pt. will be discharged home. Diagnosis Primary Impression: Encounter for care of halo brace Patient Instructions: General Instructions Additional Instructions: Follow up with neurosurgery without fail. Med/Other Pt SpecificInfo: No Change to Meds Scripts No Active Prescriptions or Reported Meds Disposition: 01 DISCHARGE HOME Condition: Stable Kaye Marin MD Nov 25, 2017 13:58
--- NOTE | 2017-11-25 15:30 | RADRPT ---
EXAM DATE: 11/25/2017 3:22 PM EDT AGE/SEX: 56 years / Male INDICATIONS: Evaluate cervical stability. Patient stated he heard "pop" from the halo forehead scre ws. Pain at the screws. CLINICAL DATA: This is the patient's initial encounter. Patient reports that signs and symptoms have been present for 2 days and indicates a pain score of 5/10. MEDICAL/SURGICAL HISTORY: None. . Cervical fusion. Left ankle ORIF. Left knee. COMPARISON: No prior exams available for comparison. FINDINGS: Patient has a cervical halo device. Extensive postsurgical changes are seen in the cervical spine. Posterior fusion at C1-2 with cerclage wires are noted. Posterior fusion rods are identified from C3 through C7. Anterior fusion plate is noted from C5 through C7. Vertebral body cage extends from mid C5 to the top of C7. Craniocervical and cervical alignment appear intact. Fusion devices all appear to be in appropriate position CONCLUSION: Postsurgical changes of the cervical spine as described above. No evidence of malalignment or disruption of the fusion devices. Electronically signed by: Sidney Conde MD 11/25/2017 3:29 PM EDT
[2017-11-25 17:29] VITALS: BP 132/95; PULSE 97; RESP 15; O2SAT 97
== END 2017-11-25 18:05 | disposition home or self-care (01) ==
LOC: NEPD 13:26
DX: Z46.89 Encounter for fitting and adjustment of other specified devices (principal); Z98.890 Other specified postprocedural states; F32.9 Major depressive disorder, single episode, unspecified; F41.9 Anxiety disorder, unspecified; Z88.0 Allergy status to penicillin
CPT/HCPCS: 72040; 99283; L0172